=== PATIENT | female | born 1955 | race Caucasian/White ===

== ENCOUNTER → 2019-06-07 08:59 | Outpatient (BNVA) | payer MEDICARE, SELFPAY | PROVIDERS: Family Provider Family Medicine; PCP Family Medicine; Visit Provider Nurse Practitioner | DX: M50.00 Cervical disc disorder with myelopathy, unspecified cervical region (principal); G90.50 Complex regional pain syndrome I, unspecified; R51 Headache; F17.210 Nicotine dependence, cigarettes, uncomplicated; Z79.891 Long term (current) use of opiate analgesic | CPT/HCPCS: 99213; 99214 ==

== ENCOUNTER → 2019-08-10 11:45 | Outpatient (BNVA) | payer OTHER, SELFPAY | PROVIDERS: Family Provider Family Medicine; PCP Family Medicine; Visit Provider Nurse Practitioner | DX: Z76.89 Persons encountering health services in other specified circumstances (principal) | CPT/HCPCS: 99212 ==

== ENCOUNTER 2019-10-21 16:42 | Emergency (ER) | payer MEDICARE, SELFPAY ==
[2019-10-21 16:56] VITALS: BP 154/84; PULSE 83; RESP 18; TEMP 36.7; O2SAT 96; BMI 24.7
--- NOTE | 2019-10-21 17:24 | ED_ITS ---
HPI - Fall General: Chief Complaint: Fall Stated Complaint: FALL/HEAD LAC Time Seen by Provider: 10/21/19 17:09 History of Present Illness: HPI Narrative: Patient is a 64-year-old female comes to the ED with a head laceration after falling and hitting her head. Patient says she was carrying something and lost her balance and fell hitting left side of head against a wooden pole. She denies any loss of consciousness, vision changes or any new neurological deficits. She denies any headache, pain or discomfort. Patient does have a laceration on her scalp and she came to the ED to get evaluation of scalp laceration. Patient does currently take 81 mg of aspirin daily. Patient's last tetanus was within 5 years. Associated symptoms-after fall: Denies abdominal pain, chest pain, headache(s), hematuria or neck pain Review of Systems Const: Denies: fever(s), chills or fatigue Eyes: Denies: change in vision or eye discomfort ENMT: Denies: throat pain, odynophagia, nasal discharge or nasal congestion Card: Denies: chest pain, palpitations, edema, swelling of feet/ankles, dyspnea on exertion or orthopnea Resp: Denies: dyspnea, productive cough or non-productive cough GI: Denies: abdominal pain, nausea, vomiting, diarrhea, constipation or hematochezia : Denies: flank pain, dysuria or hematuria Musc: Denies: neck pain, back pain or extremity swelling Skin/Breast: Reports: new lesions (Scalp laceration.); Denies: rash Neuro: Denies: headache(s), numbness in extremities or weakness in extremities PFS ED PFSH: Medical History Cervical disc disease with myelopathy CRPS (complex regional pain syndrome type I) Headache Long-term use of high-risk medication Tobacco abuse Surgical History Hx of open fracture RIGHT ARM S/P hysterectomy 1984 Family History Mother CAD (coronary artery disease) Brother Cancer COLON CANCER Sister Diabetes 2 SISTERS Denies family history of Anesthesia complication Bleeding disorder Social History Smoking and tobacco status: current every day smoker cigarettes [ Other cigarette details: 3 cig day ] Alcohol intake: never Physical Exam Const: COMMON NORMALS: no acute distress, patient oriented x3 and alert GENERAL APPEARANCE: cooperative and comfortable HENMT: COMMON NORMALS: normocephalic HEAD & SCALP: normocephalic and laceration left parietal Details of head laceration: linear, superficial and sensation intact; not actively bleeding, not pulsatile bleeding and not contaminated Head laceration size: 2.5 cm; no Veloz's sign, no palpable skull fracture, no raccoon eyes and no scalp tenderness MOUTH: Normal oral and palatal mucosa present THROAT: posterior oropharynx normal and uvula midline Eye: COMMON NORMALS: Equal, round and reactive pupils present, EOMs intact bilaterally and normal visual corey by confrontation PUPIL: Yes Equal, round and reactive pupils present Neck/C-Spine: COMMON NORMALS: supple GENERAL: Yes normal visual inspection Resp: COMMON NORMALS: normal respiratory effort, No retractions, No use of accessory muscles and clear to auscultation bilaterally AUSCULTATION: clear to auscultation bilaterally Cardio: COMMON NORMALS: regular rate, regular rhythm, S1 normal heart sound present, S2 normal heart sound present, No gallops present (Cardio), No clicks present (Cardio), No murmurs present (Cardio) and Peripheral pulses 2+ throughout RATE: regular rate RHYTHM: regular rhythm HEART SOUNDS: S1 normal heart sound present and S2 normal heart sound present PERIPHERAL PULSES: Peripheral pulses 2+ throughout GI: COMMON NORMALS: Normal to inspection, nondistended, normoactive bowel sounds present, Soft to palpation, non-tender and no masses PALPATION: Yes Soft to palpation : COMMON NORMALS: Yes no CVA tenderness BLADDER/KIDNEY EXAM: Yes no CVA tenderness Back/Pelvis: COMMON NORMALS: no CVA tenderness Extremity: COMMON NORMALS: normal to inspection and no pedal edema Neuro: COMMON NORMALS: patient oriented x3, CN's II-XII intact bilaterally, moves all extremities, no focal motor deficits and no sensory deficits noted SENSORIUM/ORIENTATION: Yes alert COORDINATION/BALANCE: whbebj-ie-mond test normal and [id number]-[id number] test normal SENSORY EXAM: Yes extremities (intact) MOTOR EXAM: 5/5 motor strength present throughout (Right upper extremity weakness that is chronic and not acute) COORDINATION: pxscfu-qd-iwrk test normal and wjwq-ne-tfbp test normal OTHER: Patient has chronic right upper extremity weakness due to injury in the past. Current right upper extremity weakness is baseline and a chronic issue. No acute change in status. Skin: GENERAL SKIN EXAM: dry skin TRAUMA: laceration (Laceration described in [facility] section of physical exam.) Procedures Laceration Laceration 1: Site: scalp Side (If applicable): left Size (cm): 2.5 Description: linear and clean Depth: simple, single layer Local Anesthetic: lidocaine 1% and with epi Amount of anesthesia used (mL): 10 Pre-repair: irrigated extensively (with normal saline) Skin layer closed with: other (rehana) Number of sutures: 3 (reahna) Technique: other (rehana) Course Vital Signs: Vital signs: Vital Signs Temperature 98.0 F 10/21/19 16:56 Pulse Rate 74 10/21/19 19:28 Respiratory Rate 16 10/21/19 19:28 Blood Pressure 184/90 10/21/19 19:28 Pulse Oximetry 98 10/21/19 19:28 MDM - Fall MDM Narrative: Medical decision making narrative: Patient is a 64-year-old female comes to the ED with fall and head laceration. Denied any loss of consciousness, nausea/vomiting or neurological symptoms. Physical exam showed 2-1/2 cm superficial linear laceration. No scalp or skull tenderness. CT of the head showed no acute findings. Laceration site was irrigated extensively with normal saline. Local lidocaine with epi was used and 3 rehana were placed to close laceration. Patient was discharged and told to have rehana removed in about 10 days. Patient understood and agreed with plan. Imaging Data^: CT Head: Attestation: I personally reviewed and interpreted this imaging study as follows: Radiologist's impression: [address] [address] [address] Scan Report Signed Patient: Lani Kaufman Unit #: [id number] : 1955 Age/Sex: 64 / F ADM Date: 10/21/19 Loc: ER Room/Bed: Attending Dr: Ordering Provider/Ordering MD: Devon Joy Date of Service: 10/21/19 Procedure(s): CT head wo con* [id number] Accession Number(s): [id number] Report Number: [id number] PROCEDURE INFORMATION: Exam: CT Head Without Contrast Exam date and time: 10/21/2019 6:20 PM Age: 64 years old Clinical indication: Injury or trauma; Fall; Initial encounter; Blunt trauma (contusions or hematomas); Without loss of consciousness; Additional info: Fall and hit head, scalp laceration TECHNIQUE: Imaging protocol: Computed tomography of the head without contrast. Radiation optimization: All CT scans at this facility use at least one of these dose optimization techniques: automated exposure control; mA and/or kV adjustment per patient size (includes targeted exams where dose is matched to clinical indication); or iterative reconstruction. COMPARISON: [place] [id number] 10/28/2017 10:04 AM RADIATION DOSE METRICS: Total DLP: 707.05 mGy-cm FINDINGS: Brain: Mild-moderate scattered hypodensities in supratentorial periventricular and subcortical white matter. No intracranial hemorrhage. Ventricles: Normal. No ventriculomegaly. Bones/joints: Unremarkable. No acute fracture. Sinuses: Mucosal thickening in the ethmoid and maxillary sinuses. Mastoid air cells: Visualized mastoid air cells are well aerated. Soft tissues: Left parietal scalp laceration with skin rehana. CT/CT head wo con* [id number] IMPRESSION: 1. No acute intracranial abnormality. 2. Mild-moderate microangiopathy. 3. Left scalp laceration with skin rehana. Radiation Dose CTDIVOL = (mGy): DLP = 707.05 (mGy-cm) Dictated By: London Smith Signed By: London Smith Signed Date/Time: 10/21/191840 DD/ 38 Discharge Plan Discharge Patient Disposition: Home, Self-Care Clinical Impression: Laceration of scalp Qualifiers: Encounter type: initial encounter Qualified Code(s): S01.01XA - Laceration without foreign body of scalp, initial encounter Condition: Stable Prescriptions: No Action albuterol sulfate [ProAir HFA] 90 mcg/actuation HFA aerosol inhaler 2 puff INHALATION Q6H PRNRF: 0 venlafaxine [Effexor XR] 150 mg capsule,extended release 24hr 150 mg PO QAM Qty: 30 RF: 5 hydrocodone-acetaminophen 5-325 mg tablet 1 tab PO BID PRN (Reason: pain) 30 Days Qty: 60 RF: 0 Hold Instructions: Home Medication placed on hold at Doctor's office methadone 10 mg tablet 10 mg PO Q8H 30 Days Qty: 90 RF: 0 Hold Instructions: Home Medication placed on hold at Doctor's office aspirin 81 mg tablet,delayed release (DR/EC) 81 mg PO QDAY RF: 0 sennosides [senna] 8.6 mg tablet 17.2 mg PO . NEEDED RF: 0 hydrocodone-acetaminophen 5-325 mg tablet 1 tab PO BID PRN (Reason: pain) 30 Days Qty: 60 RF: 0 omeprazole 40 mg capsule,delayed release(DR/EC) 40 mg PO BID Qty: 30 RF: 1 methadone 10 mg tablet 10 mg PO TID 30 Days Qty: 90 RF: 0 methadone 10 mg tablet 10 mg PO Q8H 30 Days Qty: 90 RF: 0 Discharge Orders: Discharge Order (Routine); Ordered 10/21/19 Ordered By: Devon Joy Referrals: Leif Sotelo MD [Primary Care Provider] - Discharge Diet: Regular Discharge Activity: Resume usual activity Patient Instructions: Scalp Laceration Activity Restrictions/Additional Instructions: Keep head clean and dry for the next 24 hours. After that you can rinse hair but do not vigorously scrub scalp. Have rehana removed in about 10 days. Follow-up with your PCP and 7 to 10 days for reevaluation. Take Tylenol for any pain. He can apply an ice pack on head to help with swelling. Discharge Date/Time: 10/21/19 19:32 Coding Level of Care Code ED Auto Service [employer] for [employer] Fwd Exam Comprehensive
[2019-10-21 17:30] VITALS: BP 172/94; PULSE 77; RESP 18; O2SAT 98
--- NOTE | 2019-10-21 17:37 | CTR_ITS ---
PROCEDURE INFORMATION: Exam: CT Head Without Contrast Exam date and time: 10/21/2019 6:20 PM Age: 64 years old Clinical indication: Injury or trauma; Fall; Initial encounter; Blunt trauma (contusions or hematomas); Without loss of consciousness; Additional info: Fall and hit head, scalp laceration TECHNIQUE: Imaging protocol: Computed tomography of the head without contrast. Radiation optimization: All CT scans at this facility use at least one of these dose optimization techniques: automated exposure control; mA and/or kV adjustment per patient size (includes targeted exams where dose is matched to clinical indication); or iterative reconstruction. COMPARISON: [place] [id number] 10/28/2017 10:04 AM RADIATION DOSE METRICS: Total DLP: 707.05 mGy-cm FINDINGS: Brain: Mild-moderate scattered hypodensities in supratentorial periventricular and subcortical white matter. No intracranial hemorrhage. Ventricles: Normal. No ventriculomegaly. Bones/joints: Unremarkable. No acute fracture. Sinuses: Mucosal thickening in the ethmoid and maxillary sinuses. Mastoid air cells: Visualized mastoid air cells are well aerated. Soft tissues: Left parietal scalp laceration with skin rehana. CT/CT head wo con* [id number] IMPRESSION: 1. No acute intracranial abnormality. 2. Mild-moderate microangiopathy. 3. Left scalp laceration with skin rehana. Radiation Dose CTDIVOL = (mGy): DLP = 707.05 (mGy-cm)
--- NOTE | 2019-10-21 17:37 | PC.NURSE ---
the wound was cleaned with soap and water to reveal an appr 2cm laceration to the left pariatal area of the head
[2019-10-21 18:18] VITALS: BP 106/44; PULSE 88; RESP 17; O2SAT 99
[2019-10-21 18:33] VITALS: BP 180/91; PULSE 77; RESP 18; O2SAT 100
[2019-10-21 19:28] VITALS: BP 184/90; PULSE 74; RESP 16; O2SAT 98
== END 2019-10-21 19:32 | disposition home or self-care (01) ==
PROVIDERS: Emergency Provider Physician Assistant; Family Provider Family Medicine; PCP Family Medicine
DX: S01.01XA Laceration without foreign body of scalp, initial encounter (principal); Z79.82 Long term (current) use of aspirin; W19.XXXA Unspecified fall, initial encounter; F17.210 Nicotine dependence, cigarettes, uncomplicated
CPT/HCPCS: 12001; 12345; 70450; 99282; 99283; J2001

== ENCOUNTER → 2019-11-04 09:58 | Outpatient (BNVA) | payer OTHER, SELFPAY | PROVIDERS: Family Provider Family Medicine; PCP Family Medicine; Visit Provider Nurse Practitioner | DX: M50.00 Cervical disc disorder with myelopathy, unspecified cervical region (principal); G90.50 Complex regional pain syndrome I, unspecified; F17.210 Nicotine dependence, cigarettes, uncomplicated; Z79.891 Long term (current) use of opiate analgesic | CPT/HCPCS: 99213 ==

== ENCOUNTER → 2020-01-24 10:44 | Outpatient (BNVA) | payer OTHER, SELFPAY | PROVIDERS: Family Provider Family Medicine; PCP Family Medicine; Visit Provider Nurse Practitioner | DX: M50.00 Cervical disc disorder with myelopathy, unspecified cervical region (principal); G90.50 Complex regional pain syndrome I, unspecified; F17.210 Nicotine dependence, cigarettes, uncomplicated; Z79.891 Long term (current) use of opiate analgesic; Z71.6 Tobacco abuse counseling | CPT/HCPCS: 99213; 99214 ==

== ENCOUNTER → 2020-03-22 14:01 | Outpatient (BNVA) | payer OTHER, SELFPAY | PROVIDERS: Family Provider Family Medicine; PCP Family Medicine; Visit Provider Anesthesiology | DX: G90.50 Complex regional pain syndrome I, unspecified (principal); M50.00 Cervical disc disorder with myelopathy, unspecified cervical region; F17.210 Nicotine dependence, cigarettes, uncomplicated; Z79.891 Long term (current) use of opiate analgesic | CPT/HCPCS: 99212; 99214 ==

== ENCOUNTER → 2020-05-17 12:58 | Outpatient (BNVA) | payer OTHER, SELFPAY | PROVIDERS: Family Provider Family Medicine; PCP Family Medicine; Visit Provider Nurse Practitioner | DX: G90.50 Complex regional pain syndrome I, unspecified (principal); M50.00 Cervical disc disorder with myelopathy, unspecified cervical region; M25.511 Pain in right shoulder; Z72.0 Tobacco use; Z79.891 Long term (current) use of opiate analgesic; Z71.6 Tobacco abuse counseling | CPT/HCPCS: 99214; G0463 ==

== ENCOUNTER 2020-08-02 13:34 | Outpatient (CLI) | payer MEDICARE, SELFPAY ==
--- NOTE | 2020-08-02 13:43 | MM_ITS ---
WS: [id number] BILATERAL DIGITAL SCREENING MAMMOGRAPHY WITH CAD CLINICAL INFORMATION: SCREENING HISTORY: Screening mammogram. No current complaints. COMPARISON: TECHNIQUE: Bilateral CC and MLO views. FINDINGS: Scattered fibroglandular densities bilaterally. No suspicious focal mass, asymmetry, calcifications, or architectural distortion. No evidence of malignancy. A few incidental punctate calcifications. MM/[place] [id number] IMPRESSION: BI-RADS: 1-Negative FOLLOW UP: 1 Year Follow-up Recommend return to annual screening mammography.
== END 2020-08-02 13:35 | disposition home or self-care (01) ==
PROVIDERS: PCP Family Medicine; Visit Provider Nurse Practitioner Family
DX: Z12.31 Encounter for screening mammogram for malignant neoplasm of breast (principal)
CPT/HCPCS: 77067

== ENCOUNTER → 2020-08-13 15:59 | Outpatient (BNVA) | payer MEDICARE, SELFPAY | PROVIDERS: PCP Family Medicine; Referring Provider Nurse Practitioner Family; Visit Provider Specialist | DX: M25.569 Pain in unspecified knee (principal) | CPT/HCPCS: 73560; 73565; 80500; 87070; 87205; 89051 ==

== ENCOUNTER → 2020-08-15 09:01 | Outpatient (BNVA) | payer OTHER, SELFPAY | PROVIDERS: PCP Family Medicine; Visit Provider Nurse Practitioner | DX: G90.50 Complex regional pain syndrome I, unspecified (principal); M50.00 Cervical disc disorder with myelopathy, unspecified cervical region; K29.70 Gastritis, unspecified, without bleeding; F17.210 Nicotine dependence, cigarettes, uncomplicated; Z79.891 Long term (current) use of opiate analgesic; Z71.6 Tobacco abuse counseling | CPT/HCPCS: 99213 ==

== ENCOUNTER → 2020-08-25 12:32 | Outpatient (BNVA) | payer MEDICARE, SELFPAY | PROVIDERS: PCP Family Medicine; Visit Provider Nurse Practitioner | DX: Z20.822 Contact with and (suspected) exposure to COVID-19 (principal) | CPT/HCPCS: 87635 ==

== ENCOUNTER 2020-08-28 07:14 | Day surgery (SDC) | payer MEDICARE, SELFPAY ==
[2020-08-24 12:45] VITALS: BMI 23.3
[2020-08-28 07:32] VITALS: BP 98/80; PULSE 81; RESP 18; TEMP 36.8; O2SAT 97
--- NOTE | 2020-08-28 07:53 | ANES.PREANE2 ---
Pre-Anesthetic Assessment Pre-Anesthetic Assessment: Height/Weight: Height 1.6 m Weight 59.874 kg Temp Pulse Resp BP Pulse Ox 98.2 F 81 18 98/80 97 08/28/20 07:32 08/28/20 07:32 08/28/20 07:32 08/28/20 07:32 08/28/20 07:32 Preop Diagnosis: screening colonoscopy Proposed Procedure: Operation Date: 08/28/20 08:30 Proposed Procedures p Colonoscopy 30689 Z12.11(Not Applicable) - Brett Jay MD Was Beta Kathrine taken within 24 hours: Yes Was Clonidine taken within 24 hours: N/A Last intake: Intake Last Liquid Date 08/27/20 Last Liquid Time 22:00 Last Solid Date 08/27/20 Last Solid Time 10:00 Social: Social History: Tobacco and No alcohol Packs per day: 0.5 Pack years: 42 years Exam: Pre-Anes Outpt Exam: alert, No oriented x 3, clear to auscultation bilaterally and regular rate & rhythm Airway: Submandibular: WNL Cervical ROM: Other (spinal cord stimulator previous trauma to right arm, limited ROM.) MP: 2 Dentition: Full History/ROS: No significant history except as noted Pulmonary: Pulmonary: COPD CV/HEM: CV/HEM: HTN : : None reported Hepatic: Hepatic: None reported GI: GI: GERD Metabolic: Metabolic: None reported Musc/skel: Comments: chronic pain, 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 spinal cord stimulator in place. Neuropsych: Neuropsych: Anxiety, Depression and TIA (10 years prior) Anesthetic Plan: ASA status: 3 Anesthesia: MAC Risk of > 500 ml blood loss (7ml/kg in children): No PFSH Anesthesia PFSH: Medical History Cervical disc disease with myelopathy COPD (chronic obstructive pulmonary disease) CRPS (complex regional pain syndrome type I) Headache Hypertension Hypoglycemia Surgical History History of colonoscopy 10+years ago History of esophagogastroduodenoscopy (EGD) Hx of open fracture RIGHT ARM S/P hysterectomy 1984 Family History Mother CAD (coronary artery disease) Brother Cancer COLON CANCER Sister Diabetes 2 SISTERS Denies family history of Anesthesia complication Bleeding disorder Social History Smoking and tobacco status: current every day smoker cigarettes [ Other cigarette details: 3 cig day ] Alcohol intake: never History of recent travel: No Data Anesthesia Cardiac Studies: No Data to Display
[2020-08-28] MEDS: sodium chloride 0.9% 1,000 ML 30 ML IV (07:58)
--- NOTE | 2020-08-28 08:35 | W.PM.OPSUD ---
Surgery/Procedure H&P Update DATE OF PROCEDURE: August 28, 2020 DATE H&P PERFORMED: 08/07/20 H&P UPDATE INFORMATION: I have reviewed H&P completed within last 30 days, I have examined patient prior to procedure and No changes to prior documentation PREOP DIAGNOSIS: screening colonoscopy PLANNED PROCEDURE: Operation Date: 08/28/20 08:30 Proposed Procedures p Colonoscopy 69706 Z12.11(Not Applicable) - Brett Jay MD
[2020-08-28 09:04] VITALS: BP 112/62; PULSE 67; RESP 16; TEMP 36.6; O2SAT 95
--- NOTE | 2020-08-28 11:38 | ANE.PACU2 ---
Inpatient post-anesthesia follow up: Airway intact: Yes Vital signs: Temperature 97.8 F Pulse Rate 67 Respiratory Rate 16 Blood Pressure 112/62 Pulse Oximetry 95 Oxygen Delivery Me thod Room Air Oxygen Flow Rate Fraction of Inspir ed Oxygen Hydration adequate: Yes Nausea and vomiting: No Mental status: Baseline
--- NOTE | 2020-08-28 13:45 | ANE.PACU2 ---
Inpatient post-anesthesia follow up: Airway intact: Yes Vital signs: Temperature 97.8 F Pulse Rate 67 Respiratory Rate 16 Blood Pressure 112/62 Pulse Oximetry 95 Oxygen Delivery Me thod Room Air Oxygen Flow Rate Fraction of Inspir ed Oxygen Hydration adequate: Yes Nausea and vomiting: No Pain level: 1 Mental status: Baseline
== END 2020-08-28 09:50 | disposition home or self-care (01) ==
PROVIDERS: PCP Family Medicine; Visit Provider Surgery
PROC: 0DJD8ZZ Inspection of Lower Intestinal Tract, Via Natural or Artificial Opening Endoscopic (ICD-10-PCS; CPT 45378; principal; 2020-08-28 08:30)
DX: Z12.11 Encounter for screening for malignant neoplasm of colon (principal); D12.0 Benign neoplasm of cecum; Z80.0 Family history of malignant neoplasm of digestive organs; Z79.82 Long term (current) use of aspirin; J44.9 Chronic obstructive pulmonary disease, unspecified; I10 Essential (primary) hypertension; F17.210 Nicotine dependence, cigarettes, uncomplicated; Z82.49 Family history of ischemic heart disease and other diseases of the circulatory system
CPT/HCPCS: 45380; 88305; 96360; J2704; J7030

== ENCOUNTER 2020-08-31 08:13 | Day surgery (SDC) | payer MEDICARE, SELFPAY ==
[2020-08-30 17:06] VITALS: BMI 24.1
[2020-08-31] VITALS (8 sets, daily range): BP systolic 132–162; BP diastolic 86–101; PULSE 77–110; RESP 16–20; TEMP 36.1–36.8; O2SAT 97–100
--- NOTE | 2020-08-31 08:48 | ANES.PREANE2 ---
Pre-Anesthetic Assessment Pre-Anesthetic Assessment: Height/Weight: Height 1.57 m Weight 59.874 kg Temp Pulse Resp BP Pulse Ox 98.3 F 77 18 150/101 97 08/31/20 08:35 08/31/20 08:35 08/31/20 08:35 08/31/20 08:35 08/31/20 08:35 Preop Diagnosis: Right prepatellar bursitis Proposed Procedure: Operation Date: 08/31/20 09:50 Proposed Procedures p Excision pre patellar bursa of right knee 27961 M71.30(Right) - Greta Carson MD Was Beta Kathrine taken within 24 hours: Yes Was Clonidine taken within 24 hours: N/A Last intake: Intake Last Liquid Date 08/30/20 Last Liquid Time 19:00 Last Solid Date 08/30/20 Last Solid Time 18:00 Social: Social History: Tobacco and No alcohol Exam: Pre-Anes Outpt Exam: alert, oriented x 3, clear to auscultation bilaterally and regular rate & rhythm Airway: Submandibular: WNL Cervical ROM: WNL MP: 2 Additional comments: Missing some Pulmonary: Pulmonary: COPD CV/HEM: CV/HEM: HTN [facility] [place], [place]/[facility]: Comments: Chronic pain/opioid Anesthetic Plan: ASA status: 3 Anesthesia: General Risk of > 500 ml blood loss (7ml/kg in children): No PFSH Anesthesia PFSH: Medical History Cervical disc disease with myelopathy COPD (chronic obstructive pulmonary disease) CRPS (complex regional pain syndrome type I) Headache Hypertension Hypoglycemia Surgical History (Updated 08/28/20 @ 09:35 by Brett Jay MD) History of colonoscopy (08/28/20) cecal polyp, poor prep History of esophagogastroduodenoscopy (EGD) Hx of open fracture RIGHT ARM S/P hysterectomy 1984 Family History Mother CAD (coronary artery disease) Brother Cancer COLON CANCER Sister Diabetes 2 SISTERS Denies family history of Anesthesia complication Bleeding disorder Social History Smoking and tobacco status: current every day smoker cigarettes [ Other cigarette details: 3 cig day ] Alcohol intake: never History of recent travel: No Data Anesthesia Cardiac Studies: No Data to Display
[2020-08-31] MEDS: acetaminophen 1,000 MG/100 ML PIGGYBACK 400 MG IV (09:00)
--- NOTE | 2020-08-31 09:08 | W.PM.OPSUD ---
Surgery/Procedure H&P Update DATE OF PROCEDURE: August 31, 2020 DATE H&P PERFORMED: 08/16/20 H&P UPDATE INFORMATION: I have reviewed H&P completed within last 30 days, I have examined patient prior to procedure, No changes to prior documentation and H&P is in [facility] EMR on date indicated PREOP DIAGNOSIS: Right prepatellar bursitis PLANNED PROCEDURE: Operation Date: 08/31/20 09:50 Proposed Procedures p Excision pre patellar bursa of right knee 78087 M71.30(Right) - Greta Carson MD Related Problem List Diagnoses (1) Effusion of right prepatellar bursa:
[2020-08-31] MEDS: sodium chloride 0.9% 1,000 ML 30 ML IV (09:10)
[2020-08-31] MEDS: CELEcoxib 200 mg Capsule 400 MG PO (09:16)
[2020-08-31] MEDS: ceFAZolin 1,000 mg SDV 1000 MG (10:04)
[2020-08-31] MEDS: fentaNYL 50 mcg/mL INJ 2mL IVP (10:37)
--- NOTE | 2020-08-31 11:23 | PM.OP ---
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 This was aspirated in the office for clear fluid. The mass was relatively discrete on evaluation, but she also had some pain and inflammation in the area. Procedure: The patient was brought to the operating theater, and after undergoing adequate general anesthesia, per LMA, the right lower extremity was prepped and draped in usual fashion following placement of a tourniquet high on the leg. The leg was then draped free with the prepping accomplished with DuraPrep. Following prepping and draping, the leg was exsanguinated, and the tourniquet was elevated to 250 mmHg for total tourniquet time of 9 minutes. Prior to elevation of the tourniquet, but following exposure of the site of surgery, a surgical pause was performed. At the time of the surgical pause we confirmed the site and side of surgery. Additionally, we confirmed the appropriate and timely administration of preoperative antibiotics, Ancef 2 g. The availability of equipment was confirmed, and the patient's identity was verbalized as well. Following the surgical pause, an incision was made centering over the patella continuing proximally and distally as necessary to allow access to the prepatellar bursa. Dissection continued through skin and soft tissues using a scalpel. Hemostasis was obtained using electrocautery. Care was taken to remove the cyst, and this was sent to pathology. This cyst was noted to be somewhat hemorrhagic inside and was a discrete cyst. There was clear fluid but no evidence of infection. Following removal of the cyst and associated bursal tissues, hemostasis was obtained using electrocautery. This area was irrigated, Surgi-Jack was placed, and closure was accomplished with interrupted 2-0 Monocryl in the subcutaneous tissues. 3-0 Monocryl was used to close the subcuticular area in a running fashion. This closure was followed by Dermabond and Steri-Strips. A Telfa, Tegaderm, ABDs, sterile soft roll, and an Clay wrap were then placed. The patient was returned the Recovery Room in a satisfactory condition. Will be discharged home, and the cyst was sent to pathology. Associated Problem List Diagnoses (1) Effusion of right prepatellar bursa: (2) Cyst, bursa:
--- NOTE | 2020-08-31 13:17 | ANE.PACU2 ---
Inpatient post-anesthesia follow up: Airway intact: Yes Vital signs: Temperature 97 F Pulse Rate 87 Respiratory Rate 18 Blood Pressure 162/89 Pulse Oximetry 99 Oxygen Delivery Me thod Room Air Oxygen Flow Rate 6 Fraction of Inspir ed Oxygen Hydration adequate: Yes Nausea and vomiting: No Pain level: 1 Mental status: Baseline
== END 2020-08-31 12:34 | disposition home or self-care (01) ==
PROVIDERS: PCP Family Medicine; Visit Provider Specialist
PROC: (CPT 27340; principal; 2020-08-31 09:40)
DX: M70.41 Prepatellar bursitis, right knee (principal); J44.9 Chronic obstructive pulmonary disease, unspecified; I10 Essential (primary) hypertension; Z79.891 Long term (current) use of opiate analgesic; Z82.49 Family history of ischemic heart disease and other diseases of the circulatory system; Z83.3 Family history of diabetes mellitus; Z80.0 Family history of malignant neoplasm of digestive organs; F17.210 Nicotine dependence, cigarettes, uncomplicated; Z79.82 Long term (current) use of aspirin
CPT/HCPCS: 27340; 88304; 96365; J0690; J1170; J2704; J3010; J3490; J7030

== ENCOUNTER → 2020-10-16 09:25 | Outpatient (BNVA) | payer OTHER, SELFPAY | PROVIDERS: PCP Family Medicine; Visit Provider Nurse Practitioner | DX: G90.50 Complex regional pain syndrome I, unspecified (principal); M50.00 Cervical disc disorder with myelopathy, unspecified cervical region; F17.210 Nicotine dependence, cigarettes, uncomplicated; Z79.891 Long term (current) use of opiate analgesic; Z79.899 Other long term (current) drug therapy | CPT/HCPCS: 99214 ==

== ENCOUNTER → 2020-11-28 08:18 | Outpatient (BNVA) | payer OTHER, SELFPAY | PROVIDERS: PCP Family Medicine; Visit Provider Nurse Practitioner | DX: M50.00 Cervical disc disorder with myelopathy, unspecified cervical region (principal); G90.50 Complex regional pain syndrome I, unspecified; F17.210 Nicotine dependence, cigarettes, uncomplicated; Z79.891 Long term (current) use of opiate analgesic; Z71.6 Tobacco abuse counseling | CPT/HCPCS: 99214; 99406 ==

== ENCOUNTER → 2021-01-23 09:20 | Outpatient (BNVA) | payer OTHER, SELFPAY | PROVIDERS: PCP Family Medicine; Visit Provider Nurse Practitioner | DX: M50.00 Cervical disc disorder with myelopathy, unspecified cervical region (principal); G90.50 Complex regional pain syndrome I, unspecified; Z71.6 Tobacco abuse counseling; F17.210 Nicotine dependence, cigarettes, uncomplicated; Z79.891 Long term (current) use of opiate analgesic | CPT/HCPCS: 99213 ==

== ENCOUNTER 2022-05-04 12:45 | Emergency (ER) | payer MEDICARE, SELFPAY ==
[2022-05-04] VITALS (95 sets, daily range): BP systolic 112–183; BP diastolic 57–122; PULSE 66–84; RESP 13–27; TEMP 36.9; O2SAT 92–98
--- NOTE | 2022-05-04 12:45 | CTR_ITS ---
PROCEDURE INFORMATION: Exam: CT Head Without Contrast Exam date and time: 05/04/2022 12:43 PM Age: 66 years old Clinical indication: Stroke-like symptoms; Altered mental status/memory loss; Additional info: Symptoms of acute stroke TECHNIQUE: Imaging protocol: Computed tomography of the head without contrast. Radiation optimization: All CT scans at this facility use at least one of these dose optimization techniques: automated exposure control; mA and/or kV adjustment per patient size (includes targeted exams where dose is matched to clinical indication); or iterative reconstruction. Other technique: STROKE PROTOCOL was implemented. COMPARISON: CT head wo con* [id number] 10/21/2019 6:13 PM RADIATION DOSE METRICS: Total DLP (mGy-cm): 1141.65 FINDINGS: Brain: Chronic right caudate head, bilateral putamen, right anterior limb internal capsule, right thalamic lacunar infarctions. Moderate hypoattenuating foci are noted in the central cerebral, posterior superior periatrial and anterior lateral ventricular periventricular white matter bilaterally. No intracranial hemorrhage. No mass or acute cortical infarction identified. Ventricles: Prominence of the ventricular system and subarachnoid spaces is consistent with the patient's age of 66 years. Paranasal sinuses: Visualized sinuses are unremarkable. No fluid levels. Mastoid air cells: Inferior right mastoid 2.1 cm external table benign osteoma (series 9, image 16). No fracture. Orbital cavities: Bilateral prior cataract surgery with lens replacements. Bones/joints: See Mastoid air cells finding. Soft tissues: Unremarkable. Vasculature: Atherosclerotic calcifications are present involving the carotid artery siphons bilaterally. CT/CT head thrombolytic [id number] IMPRESSION: 1. Chronic right caudate head, bilateral putamen, right anterior limb internal capsule, right thalamic lacunar infarctions. 2. Age appropriate supratentorial and infratentorial atrophy. 3. Moderate chronic white matter microvascular ischemic disease. 4. No acute intracranial abnormality identified. ASSESSMENT: ASPECTS ([place] Stroke Program Early CT Score) is 10.
--- NOTE | 2022-05-04 12:55 | W.ED.NEUROSD ---
HPI - Neuro Symptoms/Deficit General: Chief Complaint: Neuro Symptoms/Deficit Stated Complaint: STROKE LIKE SYMPTOMS Time Seen by Provider: 05/04/22 12:45 Source: patient Mode of arrival: ambulatory Limitations: no limitations History of Present Illness: 66-year-old female who family states this morning at 10 had a period of altered mental status along with left-sided facial droop she states that her symptoms completely resolved and she went to nondenominational and had an episode episode at noon with droop along with slurred speech patient denies any headache denies any chest pain last known normal was at noon she is not on any blood thinners. [facility] ED PFS: Medical History (Updated 05/04/22 @ 13:49 by Romero Webb MD) Cervical disc disease with myelopathy COPD (chronic obstructive pulmonary disease) CRPS (complex regional pain syndrome type I) Dysplastic nevus Excision with margins free on 02/04/[address] Beckham [facility]. Headache History of stroke Hypertension Hypoglycemia Vulvar lesion Surgical History History of colonoscopy (08/28/20) cecal polyp, poor prep History of esophagogastroduodenoscopy (EGD) Hx of open fracture RIGHT ARM Hx of right knee surgery Removal right prepatellar cystic bursitis DOS: 08/31/[address] Carson S/P hysterectomy 1985 Family History Mother CAD (coronary artery disease) Hypertension Brother Cancer COLON CANCER Sister Diabetes 2 SISTERS Stroke Denies family history of Clotting disorder Hyperlipidemia Chronic kidney disease (CKD) Anesthesia complication Bleeding disorder Thyroid disease Social History Smoking and tobacco status: current every day smoker cigarettes Years cigarettes smoked: 40 Alcohol intake: never History of recent travel: No NIH stroke score NIHSS: Level Of Consciousness - 1a: 0 Level Of Consciousness Questions - 1b: Both Correct Level Of Consciousness Commands - 1c: Both Correct Best Gaze - 2: Normal Visual Leiva - 3: No Visual Loss Facial Palsy - 4: Partial Paralysis Motor Arm Right - 5: No Drift Motor Arm Left - 5: No Drift Motor Leg Right - 6: No Drift Motor Leg Left - 6: No Drift Limb Ataxia - 7: Absent Sensory - 8: Normal Best Language - 9: No Aphasia Dysarthia - 10: Mild/Moderate Dysarthia Extinction And Inattention - 11: 0 Score: Total Score: 3 Physical Exam Const: COMMON NORMALS: patient oriented x3 GENERAL APPEARANCE: ill appearing HENMT: COMMON NORMALS: normocephalic and atraumatic HEAD & SCALP: normocephalic and atraumatic Eye: COMMON NORMALS: Equal, round and reactive pupils present and EOMs intact bilaterally PUPIL: Yes Equal, round and reactive pupils present Neck/C-Spine: COMMON NORMALS: full ROM and supple Chest: COMMONS NORMALS: normal inspection of the chest and normal palpation of entire chest wall Resp: COMMON NORMALS: normal respiratory effort, No retractions, No use of accessory muscles and clear to auscultation bilaterally AUSCULTATION: clear to auscultation bilaterally Cardio: COMMON NORMALS: regular rate, regular rhythm and No murmurs present (Cardio) RATE: regular rate RHYTHM: regular rhythm GI: COMMON NORMALS: Normal to inspection, nondistended, normoactive bowel sounds present, Soft to palpation, non-tender and no masses PALPATION: Yes Soft to palpation Extremity: COMMON NORMALS: normal to inspection and full ROM Neuro: COMMON NORMALS: patient oriented x3 and moves all extremities OTHER: Left-sided facial droop along with some slight slurred speech Psych: COMMON NORMALS: mental status grossly normal, Normal thought process present and cooperative THOUGHT PROCESS: Normal thought process present Skin: COMMON NORMALS: no rashes or lesions noted and no wounds GENERAL SKIN EXAM: no rashes or lesions noted Course Vital Signs: Vital signs: Vital Signs Pulse Rate 72 05/04/22 14:35 Respiratory Rate 20 H 05/04/22 14:35 Blood Pressure 117/64 05/04/22 14:35 Pulse Oximetry 95 05/04/22 14:35 Oxygen Delivery Me thod 05/04/22 13:26 MDM - Neuro Symptoms/Deficit Medical Decision Making Patient presents here with concerns for CVA her symptoms have kind of waxed and waned when she first got here her NIH was 3 her symptoms had improved slightly her facial droop is improved and her speech is improved but then she had worsened I had patient evaluated by telestroke due to these waxing waning symptoms there was a delay in being able to get a hold of Addison Bahai we called about 1 and did not get a call back to 125 patient was evaluated by the neurologist who agreed patient is a tPA candidate we will push tPA at this time her blood pressure was hypertensive originally gave her labetalol she is now in acceptable limits will transfer to [facility] Patient's symptoms have improved here after tPA will transfer to [facility] for neurology along with ICU availability Lab Data 05/04/22 12:50 05/04/22 12:[address] 05/04/22 12:45 IMPRESSION: 1. Chronic right caudate head, bilateral putamen, right anterior limb internal capsule, right thalamic lacunar infarctions. 2. Age appropriate supratentorial and infratentorial atrophy. 3. Moderate chronic white matter microvascular ischemic disease. 4. No acute intracranial abnormality identified. ASSESSMENT: ASPECTS ([place] Stroke Program Early CT Score) is 10. ADDENDUM: 05/04/22 1301 THIS REPORT CONTAINS FINDINGS THAT MAY BE CRITICAL TO PATIENT CARE. The findings were verbally communicated by me to DR. ROMERO WEBB via telephone conference at 1:00 PM REACTOR FUELING SUPERVISOR on 05/04/2022. The findings were acknowledged and understood. Laboratory Results WBC 9.7 10^3/uL (4.0-10.0) 05/04/22 12:50 RBC 4.56 10^6/uL (4.1-5.3) 05/04/22 12:50 Hgb 13.9 g/dL (11.5-15.3) 05/04/22 12:50 Hct 42.6 % (37.0-47.0) 05/04/22 12:50 MCV 93.4 fl (81-99) 05/04/22 12:50 MCH 30.5 pg (28.0-34.0) 05/04/22 12:50 MCHC 32.6 g/dL (30.0-36.0) 05/04/22 12:50 RDW 14.1 % (12.1-15.1) 05/04/22 12:50 Plt Count 257 10^3/cmm (130-400) 05/04/22 12:50 MPV 11.1 fL (7.4-10.4) H 05/04/22 12:50 Neut % (Auto) 65.6 % 05/04/22 12:50 Lymph % (Auto) 23.4 % 05/04/22 12:50 [place] % (Auto) 6.5 % 05/04/22 12:50 Eos % (Auto) 3.7 % 05/04/22 12:50 Baso % (Auto) 0.5 % 05/04/22 12:50 Neut # (Auto) 6.36 10^3/uL (1.8-7.7) 05/04/22 12:50 Lymph # (Auto) 2.3 10^3/uL (0.8-4.8) 05/04/22 12:50 [place] # (Auto) 0.6 10^3/uL (0.2-0.9) 05/04/22 12:50 Eos # (Auto) 0.4 10^3/uL (0.0-0.8) 05/04/22 12:50 Baso # (Auto) 0.1 10^3/uL (0.0-0.1) 05/04/22 12:50 Nucleated RBC % (auto) 0 % 05/04/22 12:50 Nucleated RBCs # 0.0 /100WBC 05/04/22 12:50 PT 13.90 SECONDS (12.1-14.9) 05/04/22 12:50 INR 1.04 (0.8-1.2) 05/04/22 12:50 APTT 29.0 SECONDS (23.9-36.7) 05/04/22 12:50 Sodium 137 mmol/L (136-145) 05/04/22 12:50 Potassium 4.1 mmol/L (3.5-5.1) 05/04/22 12:50 Chloride 102 mmol/L (98-107) 05/04/22 12:50 Carbon Dioxide 24 mmol/L (22-29) 05/04/22 12:50 Anion Gap 15.1 (5-19) 05/04/22 12:50 BUN 24 mg/dL (8-23) H 05/04/22 12:50 Creatinine 1.0 mg/dL (0.5-0.9) H 05/04/22 12:50 GFR Calculation 55.6 mL/min (90-130) L 05/04/22 12:50 Glucose 78 mg/dL (65-115) 05/04/22 12:50 Calculated Osmolality 287 mOsm/kg (285-295) 05/04/22 12:50 Calcium 9.4 mg/dL (8.5-10.5) 05/04/22 12:50 Total Bilirubin 0.3 mg/dL (0.15-1.2) 05/04/22 12:50 AST 14 U/L (0-32) 05/04/22 12:50 ALT 12 U/L (0-33) 05/04/22 12:50 Alkaline Phosphatase 94 U/L (35-105) 05/04/22 12:50 Total Protein 7.5 g/dL (6.6-8.7) 05/04/22 12:50 Albumin 4.3 g/dL (3.5-5.2) 05/04/22 12:50 Globulin 3.2 g/dL (1.3-4.6) 05/04/22 12:50 SARS-CoV-2 Ag (Rapid) negative (Negative) 05/04/22 15:08 Discharge Plan Discharge Patient Disposition: Xfer Short-Term Hosp Clinical Impression: Cerebrovascular accident Condition: Stable Coding Level of Care Code ED Senior Dot Net Developer for Rivas Garcia
[2022-05-04] MEDS: labetalol 5 mg/mL SDV 20mL 10 MG IVP (12:58)
--- NOTE | 2022-05-04 12:58 | ECG_ITS ---
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
[2022-05-04 12:59] LABS: Basophils # 0.1 10^3/uL (0.0-0.1); Basophils % 0.5 %; Eosinophils # 0.4 10^3/uL (0.0-0.8); Eosinophils % 3.7 %; Hematocrit 42.6 % (37.0-47.0); Hemoglobin 13.9 g/dL (11.5-15.3); Lymphocytes # 2.3 10^3/uL (0.8-4.8); Lymphocytes % 23.4 %; Mean Corpuscular HGB Conc 32.6 g/dL (30.0-36.0); Mean Corpuscular Hemoglobin 30.5 pg (28.0-34.0); Mean Corpuscular Volume 93.4 fl (81-99); Mean Platelet Volume 11.1 fL (7.4-10.4); Monocytes # 0.6 10^3/uL (0.2-0.9); Monocytes % 6.5 %; Neutrophils # 6.36 10^3/uL (1.8-7.7); Neutrophils % 65.6 %; Nucleated Red Blood Cells % 0 %; Platelet Count 257 10^3/cmm (130-400); Red Blood Count 4.56 10^6/uL (4.1-5.3); Red Cell Distribution Width 14.1 % (12.1-15.1); White Blood Count 9.7 10^3/uL (4.0-10.0)
[2022-05-04 13:09] LABS: INR 1.04 (0.8-1.2)
[2022-05-04 13:14] LABS: Alanine Aminotransferase 12 U/L (0-33); Albumin Level 4.3 g/dL (3.5-5.2); Alkaline Phosphatase 94 U/L (35-105); Anion Gap 15.1 (5-19); Aspartate Amino Transferase 14 U/L (0-32); Blood Urea Nitrogen 24 mg/dL (8-23); Calcium 9.4 mg/dL (8.5-10.5); Carbon Dioxide 24 mmol/L (22-29); Chloride 102 mmol/L (98-107); Globulin 3.2 g/dL (1.3-4.6); Glomerular Filtration Rate 55.6 mL/min (90-130); Glucose 78 mg/dL (65-115); Osmolality Calculated 287 mOsm/kg (285-295); Potassium 4.1 mmol/L (3.5-5.1); Sodium 137 mmol/L (136-145); Total Bilirubin 0.3 mg/dL (0.15-1.2); Total Protein 7.5 g/dL (6.6-8.7)
--- NOTE | 2022-05-04 13:17 | PC.NURSE ---
pt placed on continuous nibp, spo2, and cm
--- NOTE | 2022-05-04 14:00 | PC.NURSE ---
PT HAS CHRONIC WEAKNESS OF RIGHT ARM
[2022-05-04] MEDS: sodium chloride 0.9% 50 ML 200 ML IV (14:55)
[2022-05-04 15:29] LABS: SARS Covid-2 Antigen negative (Negative)
--- NOTE | 2022-05-04 16:07 | CTR_ITS ---
PROCEDURE INFORMATION: Exam: CTA Head With Contrast, Arteriography Exam date and time: 05/04/2022 4:13 PM Age: 66 years old Clinical indication: Speech disturbance; Additional info: CVA TECHNIQUE: Imaging protocol: Computed tomographic angiography of the head with contrast. Exam focused on the arteries. 3D rendering (Not supervised by radiologist): MIP reconstructed images were created by the technologist. Radiation optimization: All CT scans at this facility use at least one of these dose optimization techniques: automated exposure control; mA and/or kV adjustment per patient size (includes targeted exams where dose is matched to clinical indication); or iterative reconstruction. Contrast material: OMNI 350; Contrast volume: 100 ml; Contrast route: INTRAVENOUS (IV); COMPARISON: CT head thrombolytic [id number] 05/04/2022 12:43 PM RADIATION DOSE METRICS: Total DLP (mGy-cm): 370.74 FINDINGS: ANTERIOR CIRCULATION: Right internal carotid artery: Noncalcified plaque right proximal cavernous internal carotid artery, 50-60% stenosis. Right middle cerebral artery: No occlusion or significant stenosis. No aneurysm. Right anterior cerebral artery: No occlusion or significant stenosis. No aneurysm. Left internal carotid artery: Intracranial segment is patent with no significant stenosis. No aneurysm. Left middle cerebral artery: No occlusion or significant stenosis. No aneurysm. Left anterior cerebral artery: No occlusion or significant stenosis. No aneurysm. POSTERIOR CIRCULATION: Right vertebral artery: No occlusion or significant stenosis. No aneurysm. Left vertebral artery: Mild left vertebral artery V4 segment calcified plaque, less than 25% stenosis. Basilar artery: No occlusion or significant stenosis. No aneurysm. Right posterior cerebral artery: No occlusion or significant stenosis. No aneurysm. Left posterior cerebral artery: No occlusion or significant stenosis. No aneurysm. Left common carotid artery: Left common carotid artery bifurcation minimal smooth calcified plaque, less than 10% stenosis. Brain: Chronic lacunar infarctions. Ventricles: No ventriculomegaly. Bones/joints: Unremarkable. No acute fracture. Soft tissues: Unremarkable. PROCEDURE INFORMATION: Exam: CTA Neck With Contrast Exam date and time: 05/04/2022 4:13 PM Age: 66 years old Clinical indication: Speech disturbance; Additional info: CVA TECHNIQUE: Imaging protocol: Computed tomographic angiography of the neck with contrast. 3D rendering (Not supervised by radiologist): MIP reconstructed images were created by the technologist. Radiation optimization: All CT scans at this facility use at least one of these dose optimization techniques: automated exposure control; mA and/or kV adjustment per patient size (includes targeted exams where dose is matched to clinical indication); or iterative reconstruction. Contrast material: OMNI 350; Contrast volume: 100 ml; Contrast route: INTRAVENOUS (IV); COMPARISON: CT neck w con* [id number] 11/05/2018 2:47 PM RADIATION DOSE METRICS: Total DLP (mGy-cm): 340.74 FINDINGS: Tubes, catheters and devices: Cervical neural stimulator present. Right common carotid artery: Mild right common carotid artery bifurcation smooth calcified plaque, less than 10% stenosis. Right internal carotid artery: No stenosis of the extracranial segment. No dissection or occlusion. Right external carotid artery: No occlusion or stenosis of the origin. Left common carotid artery: No stenosis. No dissection or occlusion. Left internal carotid artery: No stenosis of the extracranial segment. No dissection or occlusion. Left external carotid artery: No occlusion or stenosis of the origin. Right vertebral artery: No stenosis. No dissection or occlusion. Left vertebral artery: No stenosis. No dissection or occlusion. Thyroid: Mildly heterogeneous right thyroid lobe with marginally calcified 1.8 cm nodule. Lymph nodes: Left hilar granulomatous hermes calcifications are present. Soft tissues: Normal. No significant soft tissue swelling. Bones/joints: Moderate left C2-C3 primary facet osteoarthritis. Lungs: Mild centrilobular emphysema bilaterally. CT/CT angio headneck* [id number] IMPRESSION: 1. No acute extracranial vascular abnormality identified. 2. Noncalcified plaque right proximal cavernous internal carotid artery, 50-60% stenosis. 3. Chronic lacunar infarctions. IMPRESSION: 1. Recommend nonemergent thyroid sonography for further evaluation of a right thyroid nodule. 2. Pulmonary emphysema. COMMENTS: Consistent with the [employer]'s Incidental Findings Committee white paper (J Am Arun Radiol 2015): In patients aged 35 years and older with an incidental thyroid nodule equal to or greater than 1.[address], MRI or extrathyroidal US, further evaluation with dedicated thyroid US is recommended for patients with normal life expectancy and without comorbidities. For smaller nodules without suspicious features, no further evaluation or follow up is recommended. REFERENCES: NASCET CRITERIA. The degree of stenosis in the cervical segment of the internal carotid artery is based on NASCET criteria. Normal is no stenosis. Mild is less than 50% stenosis. Moderate is 50-69% stenosis. Severe is 70% to 99% stenosis. Total occlusion is no detectable patent lumen.
[2022-05-04] MEDS: iohexol 350 mg/mL 500 mL Btl (per mL) IV (16:23)
--- NOTE | 2022-05-04 18:48 | P.HP_ITS ---
Providers/Chief Complaint Admitting Physician: Jordon Rosenthal MD Chief Complaint: STROKE LIKE SYMPTOMS History of Present Illness Lani Kaufman is a 66 year old female with a past medical tree of chronic right upper extremity weakness due to accident, complex regional pain syndrome, on chronic methadone, history of multiple CVAs in the past, COPD, cervical radiculopathy, smoker, hypertension, hyperlipidemia, who presents [facility] due to facial droop, slurring of her words. 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 Patient came in as a stroke alert, [facility] is contacted, CT head was negative for acute stroke negative for intracranial bleed, NIH stroke scale was 3, she was given tPA, [facility] she had waxing waning symptoms, her left facial droop improved, but then worsened current currently she continues to have a left facial droop,, moderate, some degree of slurring of her words, no trouble swallowing she tells me that she is more weak on the right side, no changes in her vision, however it is very difficult to discern the weakness on the right side especially in the right arm given her chronic weakness, after her accident, and she tells me that she hurts all over she has not received her methadone, so lifting both her legs causes a lot of pain Review of Systems Const: Denies: fever(s) Eyes: Denies: change in vision ENMT: Denies: nasal congestion Card: Denies: chest pain or palpitations Resp: Denies: dyspnea GI: Denies: abdominal pain, nausea or vomiting : Denies: dysuria Musc: Denies: neck pain or back pain Skin/Breast: Denies: rash Neuro: Denies: headache(s), dizziness or vertigo Psych: Denies: anxiety Endo: Denies: polyuria or polydipsia Medications/Allergies Home Medications Medication Instructions Recorded Confirmed Last Taken Type coenzyme Q10 100 mg capsule 100 mg PO DAILY 08/15/20 05/04/22 05/04/22 History (CoQ-10) turmeric 400 mg capsule 400 mg PO DAILY 08/15/20 05/04/22 05/04/22 History clobetasol 0.05 % topical cream 1 applic topical BID 2 weeks #45 11/16/20 05/04/22 Unknown Rx grams elderberry fruit 200 mg capsule 400 mg PO DAILY 01/23/21 05/04/22 05/04/22 History tizanidine 4 mg tablet 4 mg PO Q8H PRN muscle spasticity 04/29/21 05/04/22 Unknown Rx #90 tabs omeprazole 20 mg capsule,delayed 40 mg PO BID gastritis 30 days 10/30/21 05/04/22 05/04/22 Rx release #120 caps albuterol sulfate 90 mcg/actuation 2 puff inhalation Q6H PRN 02/13/22 05/04/22 Unknown Rx aerosol inhaler shortness of breath or wheezing #8.5 grams amlodipine 5 mg tablet 5 mg PO DAILY blood pressure #30 03/18/22 05/04/22 05/04/22 Rx tabs venlafaxine 150 mg 150 mg PO QAM pain 90 days #90 caps 04/15/22 05/04/22 05/04/22 Rx capsule,extended release 24 hr (Effexor XR) aspirin 81 mg tablet,delayed 81 mg PO DAILY 05/04/22 05/04/22 05/04/22 History release methadone 5 mg tablet 5 mg PO BID 05/04/22 05/04/22 05/04/22 History valsartan 80 mg tablet 80 mg PO DAILY 05/04/22 05/04/22 05/04/22 History Allergies Allergy/AdvReac Type Severity Reaction Status Date / Time amitriptyline AdvReac Unknown UNKNOWN Verified 10/30/21 13:22 gabapentin AdvReac UNKNOWN Verified 10/30/21 13:22 naloxegol [From [employer]] AdvReac UNKNOWN Verified 10/30/21 13:22 naproxen AdvReac UNKNOWN Verified 10/30/21 13:22 nifedipine AdvReac UNKNOWN Verified 10/30/21 13:22 PFSH Acute PFSH: Medical History Cervical disc disease with myelopathy COPD (chronic obstructive pulmonary disease) CRPS (complex regional pain syndrome type I) Dysplastic nevus Excision with margins free on 02/04/[address] Beckham [facility]. Headache History of stroke Hypertension Hypoglycemia Vulvar lesion Surgical History History of colonoscopy (08/28/20) cecal polyp, poor prep History of esophagogastroduodenoscopy (EGD) Hx of open fracture RIGHT ARM Hx of right knee surgery Removal right prepatellar cystic bursitis DOS: 08/31/[address] Carson S/P hysterectomy 1984 Family History Mother CAD (coronary artery disease) Hypertension Brother Cancer COLON CANCER Sister Diabetes 2 SISTERS Stroke Denies family history of Clotting disorder Hyperlipidemia Chronic kidney disease (CKD) Anesthesia complication Bleeding disorder Thyroid disease Social History Smoking and tobacco status: current every day smoker cigarettes Years cigarettes smoked: 40 Alcohol intake: never History of recent travel: No Vitals/I&O/Wt Last Vital Signs Pulse 77 05/04/22 18:40 Resp 24 H 05/04/22 18:40 BP 145/91 05/04/22 18:40 Pulse Ox 94 05/04/22 18:40 O2 Del Method 05/04/22 13:26 05/04/22 05/04/22 05/04/22 06:59 14:59 22:59 Intake Total 50.8 / 50.8 Balance 50.8 / 50.8 Weight last 48 hrs Weight 62.142 kg Physical Exam Const: COMMON NORMALS: no acute distress and patient oriented x3 HENMT: COMMON NORMALS: normocephalic HEAD & SCALP: normocephalic Eye: COMMON NORMALS: Equal, round and reactive pupils present and EOMs intact bilaterally Neck/C-Spine: COMMON NORMALS: full ROM and no lymphadenopathy Lymph: LYMPHATIC: no lymphadenopathy noted Chest: COMMONS NORMALS: normal inspection of the chest Resp: COMMON NORMALS: normal respiratory effort, No retractions, No use of accessory muscles and clear to auscultation bilaterally AUSCULTATION: clear to auscultation bilaterally Cardio: COMMON NORMALS: regular rate, regular rhythm, S1 normal heart sound present and S2 normal heart sound present RATE: regular rate RHYTHM: regular rhythm HEART SOUNDS: S1 normal heart sound present and S2 normal heart sound present GI: COMMON NORMALS: Normal to inspection, nondistended, normoactive bowel sounds present, Soft to palpation and non-tender Extremity: COMMON NORMALS: no pedal edema Neuro: COMMON NORMALS: patient oriented x3 OTHER: - On examination left facial droop -Pupils equal round reactive to light -Difficult to do myypbr-am-haos testing, on the right, due to severe pain, and weakness which is chronic and she has a tremor on the right -Hhhpkh-hg-nkfe on the left, is abnormal -Wzev-gx-uqqv difficult to bilaterally due to severe pain -Strength right upper extremity chronically is weak, 3 out of 5 -Left upper extremity strength 5 out of 5 -Bilateral lower extremity strength 3 out of 5 -No paresthesias reported Psych: COMMON NORMALS: mental status grossly normal Data 05/04/22 12:50 05/04/22 12:50 A&P Assessment and plan (1) Cerebrovascular accident: (2) Hypertension: (3) COPD (chronic obstructive pulmonary disease): Plan CVA status post tPA -NIH stroke scale admission was 3 -CT head 1. Chronic right caudate head, bilateral putamen, right anterior limb internal capsule, right thalamic lacunar infarctions. 2. Age appropriate supratentorial and infratentorial atrophy. 3. Moderate chronic white matter microvascular ischemic disease. 4. No acute intracranial abnormality identified. CTA head and neck -INDINGS: Tubes, catheters and devices: Cervical neural stimulator present. Right common carotid artery: Mild right common carotid artery bifurcation smooth calcified plaque, less than 10% stenosis. Right internal carotid artery: No stenosis of the extracranial segment. No dissection or occlusion. Right external carotid artery: No occlusion or stenosis of the origin.? Left common carotid artery: No stenosis. No dissection or occlusion. Left internal carotid artery: No stenosis of the extracranial segment. No dissection or occlusion. Left external carotid artery: No occlusion or stenosis of the origin.? Right vertebral artery: No stenosis. No dissection or occlusion. Left vertebral artery: No stenosis. No dissection or occlusion. Thyroid: Mildly heterogeneous right thyroid lobe with marginally calcified 1.8 cm nodule. Lymph nodes: Left hilar granulomatous hermes calcifications are present. Soft tissues: Normal. No significant soft tissue swelling. Bones/joints: Moderate left C2-C3 primary facet osteoarthritis. Lungs: Mild centrilobular emphysema bilaterally. CT/CT angio headneck* [id number] IMPRESSION: 1. No acute extracranial vascular abnormality identified. 2. Noncalcified plaque right proximal cavernous internal carotid artery, 50-60% stenosis. 3. Chronic lacunar infarctions. ? ? IMPRESSION: 1. Recommend nonemergent thyroid sonography for further evaluation of a right thyroid nodule. 2. Pulmonary emphysema. -Currently persistent left facial droop, slurring of her words, it is difficult to gauge any strength of upper or lower extremities due to her chronic pain, and her right upper extremity she has had a at sitting she chronically has a tremor and weakness -Attempts were made to transfer to [facility] however there are beds are full Plan -Admit to ICU -Neurochecks, aspiration precautions, NIH stroke scale -N.p.o. until formal speech therapy eval -IV fluids -Labetalol as needed for systolic blood pressure greater than 10 or diastolic greater than 105 -Telemetry monitoring -Cardiac echo -Review of patient's CT head shows that she has had multiple lacunar infarcts, in the past, she has had history of CVAs in the past -She denies any issues with hypertension she takes her medications as prescribed -Findings are concerning for embolic events, would highly suggest event monitor on discharge to diagnose underlying atrial fibrillation -Monitor neurologic status closely, monitor for hemorrhagic transformation -Will do CT of the head in the morning -Aspirin 24 hours after tPA -Statin -Lovenox for DVT prophylaxis 24 hours after tPA -She is DNR/DNI, I confirmed this with family at bedside -Chronic pain continue Effexor, continue methadone -Protonix for GI prophylaxis - For acute kidney injury, IV fluids, creatinine 1.0 History of COPD, advised to quit smoking Attestations Medical Necessity Statement*: Patient requires hospitalization, inpatient, greater than 2 midnights, for CVA status post tPA Time Spent in Patient Care: Greater than 35 minutes Coding Level of Care Code Acute Motorcycle 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
[2022-05-04 19:21] LABS: Add Urine Microscopic? NO; Charge for UA Resulting for Rev
[2022-05-04 19:27] LABS: Urine Color Yellow (Yellow)
[2022-05-04 19:28] LABS: Bilirubin Urine Neg (Negative); Blood Urine Neg (Negative); Glucose Urine UA Norm (Normal); Ketones Urine Negative (Negative); Leukocyte Esterase Urine Negative (Negative); Nitrate Urine Negative (Negative); Protein Urine Neg (Negative); Urine Appearance Clear (CLEAR); Urobilinogen Urine Neg (Negative); pH Urine 5 (5-7)
--- NOTE | 2022-05-04 19:31 | CTR_ITS ---
PROCEDURE INFORMATION: Exam: CT Head Without Contrast Exam date and time: 05/04/2022 7:42 PM Age: 66 years old Clinical indication: Other: S/P tpa 1400 - worsening symptoms; Headache; Patient HX: Severe RT sided RODRIGUEZ and neck pain; Additional info: S/P tpa at 2p, worsenign symptoms TECHNIQUE: Imaging protocol: Computed tomography of the head without contrast. Radiation optimization: All CT scans at this facility use at least one of these dose optimization techniques: automated exposure control; mA and/or kV adjustment per patient size (includes targeted exams where dose is matched to clinical indication); or iterative reconstruction. COMPARISON: CT head thrombolytic [id number] 05/04/2022 12:43 PM RADIATION DOSE METRICS: Total DLP (mGy-cm): 1120.18 FINDINGS: Brain: Mild diffuse cortical volume loss. Severe hypodensities in supratentorial periventricular and subcortical white matter, consistent with microangiopathy. No intracranial hemorrhage. Small chronic lacunar infarcts in the bilateral lentiform nuclei and right caudate head. Cerebral ventricles: No ventriculomegaly. Paranasal sinuses: Mucosal thickening in the anterior ethmoid air cells. The other sinuses are clear. No air-fluid level. Mastoid air cells: See Bones/joints finding. Orbital cavities: Prior cataract surgery. 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 The mastoids are clear. Soft tissues: Unremarkable. Vasculature: No hyperdense artery. CT/CT head wo con* [id number] IMPRESSION: 1. Stable CT head. No acute intracranial abnormality.
[2022-05-04 19:34] LABS: Amphetamines Screen Urine Negative (Negative); Barbiturates Screen Urine Negative (Negative); Benzodiazepines Screen Urine Negative (Negative); Cocaine Screen Urine Negative (Negative); Opiate Screen Urine Negative (Negative); PCP Screen Urine Negative (Negative); THC Screen Urine Negative (Negative)
--- NOTE | 2022-05-04 19:43 | PC.NURSE ---
Ethan Orourke Report called to receiving facility - [facility] @ [phone]. Spoke with Kusum Robertson RN, all questions have been answered.
== END 2022-05-04 20:40 | disposition short-term general hospital (02) ==
LOC: ER 15:34 → ICU 20:35
PROVIDERS: Emergency Provider Emergency Medicine
DX: I63.9 Cerebral infarction, unspecified (principal); Z20.822 Contact with and (suspected) exposure to COVID-19; F17.210 Nicotine dependence, cigarettes, uncomplicated; J44.9 Chronic obstructive pulmonary disease, unspecified; Z86.73 Personal history of transient ischemic attack (TIA), and cerebral infarction without residual deficits; I10 Essential (primary) hypertension
CPT/HCPCS: 70450; 70496; 70498; 80053; 80306; 81003; 85025; 85610; 85730; 87426; 93005; 96365; 96375; 99291; J2997; J3490; Q9967

== ENCOUNTER → 2022-05-21 08:51 | Outpatient (BNVA) | payer MEDICARE, SELFPAY | PROVIDERS: PCP Family Medicine Adult Medicine; Visit Provider Specialist | DX: G47.19 Other hypersomnia (principal); F11.20 Opioid dependence, uncomplicated; J44.9 Chronic obstructive pulmonary disease, unspecified; I10 Essential (primary) hypertension; I69.313 Psychomotor deficit following cerebral infarction; I69.322 Dysarthria following cerebral infarction; F17.210 Nicotine dependence, cigarettes, uncomplicated | CPT/HCPCS: 99205 ==

== ENCOUNTER → 2022-05-22 10:19 | Outpatient (BNVA) | payer MEDICARE, SELFPAY | PROVIDERS: PCP Family Medicine Adult Medicine; Referring Provider Specialist; Visit Provider Specialist | DX: G47.19 Other hypersomnia (principal); R41.82 Altered mental status, unspecified | CPT/HCPCS: 95812; 95816 ==

== ENCOUNTER → 2022-05-28 13:06 | Outpatient (BNVA) | payer MEDICARE, SELFPAY | PROVIDERS: PCP Family Medicine Adult Medicine; Visit Provider Internal Medicine | DX: Z79.891 Long term (current) use of opiate analgesic (principal); I63.9 Cerebral infarction, unspecified | CPT/HCPCS: 93270 ==

== ENCOUNTER 2022-06-06 16:41 | Emergency (ER) | payer MEDICARE, SELFPAY ==
[2022-06-06] VITALS (8 sets, daily range): BP systolic 132–158; BP diastolic 75–94; PULSE 68–79; RESP 16–22; TEMP 36.7; O2SAT 94–98
--- NOTE | 2022-06-06 17:01 | XRR_ITS ---
PROCEDURE INFORMATION: Exam: XR Chest Exam date and time: 06/06/2022 5:14 PM Age: 66 years old Clinical indication: Shortness of breath; Additional info: SOB, cp, weakness since yesterday, heart monitor has been on for a week, HX of stroke in April TECHNIQUE: Imaging protocol: Radiologic exam of the chest. Views: 1 view. COMPARISON: CT chest w con* [id number] 01/27/2018 3:17 PM FINDINGS: Tubes, catheters and devices: Heart monitor over the left thorax along with an apparent stimulator over the left abdomen. Lungs: Unremarkable. No consolidation. Pleural spaces: Unremarkable. No pleural effusion. No pneumothorax. Heart/Mediastinum: Unremarkable. No cardiomegaly. Bones/joints: Unremarkable. XR/XR chest 1V portable [id number] IMPRESSION: Heart monitor over the left thorax along with an apparent stimulator over the left abdomen.
--- NOTE | 2022-06-06 17:26 | W.ED.SOB ---
HPI - SOB/Dyspnea General: Chief Complaint: Shortness of Breath/Dyspnea Stated Complaint: sob/chest pain/low ox Time Seen by Provider: 06/06/22 17:26 History of Present Illness: HPI Narrative: Ms Kaufman is a 66-year-old lady with history of stroke, CKD, COPD with recent cessation of tobaccoism presenting to the emergency department for illness and chest pain. She reports feeling increased fatigue and generalized malaise yesterday. She was up doing something today and had sudden onset of substernal chest heaviness associated with worsening shortness of breath. Intensity symptoms moderate to severe. Course has persisted. No other specific changes in health, exacerbating, or alleviating factors identified. 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 [facility]. Headache History of stroke Hypertension Long-term use of high-risk medication Multiple lacunar infarcts Opioid contract exists Opioid dependence Stopped smoking 05/18/2022 she stopped smoking and is now on nicotine patch and using a nicotine inhaler at times. Vulvar lesion Surgical History History of colonoscopy (08/28/20) cecal polyp, poor prep History of esophagogastroduodenoscopy (EGD) Hx of open fracture RIGHT ARM Hx of right knee surgery Removal right prepatellar cystic bursitis DOS: 08/31/[address] Carson S/P hysterectomy 1985 Family History Mother CAD (coronary artery disease) Hypertension Brother Cancer COLON CANCER Sister Diabetes 2 SISTERS Stroke Denies family history of Clotting disorder Hyperlipidemia Chronic kidney disease (CKD) Anesthesia complication Bleeding disorder Thyroid disease Social History Smoking and tobacco status: current every day smoker cigarettes Years cigarettes smoked: 40 Alcohol intake: never History of recent travel: No Physical Exam Const: COMMON NORMALS: alert GENERAL APPEARANCE: cooperative, well developed and ill appearing (Chronically) HENMT: COMMON NORMALS: normocephalic and atraumatic HEAD & SCALP: normocephalic and atraumatic Eye: COMMON NORMALS: conjunctivae normal CONJUNCTIVA: Yes conjunctivae normal SCLERA: sclerae normal Neck/C-Spine: COMMON NORMALS: supple GENERAL: Yes trachea midline Resp: EFFORT & INSPECTION: Yes able to speak in complete sentences AUSCULTATION: diminished lung sounds Cardio: COMMON NORMALS: regular rate and regular rhythm RATE: regular rate RHYTHM: regular rhythm GI: COMMON NORMALS: Soft to palpation PALPATION: Yes Soft to palpation and No Tenderness to palpation present (GI) PERCUSSION: normal to percussion Extremity: GENERAL: Yes normal exam except as noted and No edema Neuro: COMMON NORMALS: moves all extremities SENSORIUM/ORIENTATION: Yes alert and No Orientation impaired Psych: COMMON NORMALS: mental status grossly normal and Normal thought process present THOUGHT PROCESS: Normal thought process present Course Vital Signs: Vital signs: Vital Signs Temperature 98.0 F 06/06/22 16:52 Pulse Rate 71 06/06/22 20:58 Respiratory Rate 18 06/06/22 20:58 Blood Pressure 132/75 06/06/22 20:58 Pulse Oximetry 95 06/06/22 20:58 Oxygen Delivery Me thod 06/06/22 19:36 MDM - SOB/Dyspnea Medical Decision Making 66-year-old lady presenting with 1 day history of generalized illness including chest discomfort and shortness of breath. Exam as above. Labs notable for normal hemoglobin, no leukocytosis, normal platelet count. Metabolic panel without significant arrangement. Baseline CKD. Negative range 2-hour delta troponin. Rapid viral testing is negative. Overall comparison labs are similar to recent prior. Chest x-ray with no lobar consolidation or pneumothorax, without recent similar study for comparison. Patient endorses possible confusion and disorientation feeling with history of stroke therefore CT imaging was obtained negative for acute intracranial pathology which is similar to prior. Patient treated during ED course with aspirin and albuterol/ipratropium bromide and felt improved. Most likely etiology of patient's symptoms is COPD exacerbation. The patient appears improved on reassessment and does not require supplemental oxygen. Plan to treat in the outpatient setting with course of steroids, antibiotics, taper of albuterol MDI. The results of ED evaluation were discussed with the patient including possible disposition options. I discussed risk stratification by heart score and estimated risk of major adverse cardiac events. The patient wishes to proceed with outpatient management. I discussed prescriptions and/or symptomatic cares (if applicable) including appropriate and responsible use, followup plan, and return precautions. The patient verbalized understanding and felt safe for discharge. Medical Records I reviewed the patient's medical records. Lab Data I reviewed the patient's lab results. 06/06/22 17:34 06/06/22: Labs/Radiology: Radiology Impressions Chest X-Ray 06/06/22 17: IMPRESSION: Heart monitor over the left thorax along with an apparent stimulator over the left abdomen. Head CT 06/06/22 18:18 IMPRESSION: Negative for intracranial hemorrhage or mass effect. Laboratory Results WBC 9.0 10^3/uL (4.0-10.0) 06/06/22: RBC 4.76 10^6/uL (4.1-5.3) 06/06/22: Hgb 14.3 g/dL (11.5-15.3) 06/06/22: Hct 44.6 % (37.0-47.0) 06/06/22: MCV 93.7 fl (81-99) 06/06/22: MCH 30.0 pg (28.0-34.0) 06/06/22: MCHC 32.1 g/dL (30.0-36.0) 06/06/22 RDW 13.5 % (12.1-15.1) 06/06/22: Plt Count 247 10^3/cmm (130-400) 06/06/22 MPV 10.9 fL (7.4-10.4) H 06/06/22: Neut % (Auto) 72.3 % 06/06/22 17:34 Lymph % (Auto) 17.5 % 06/06/22 17:34 [place] % (Auto) 7.0 % 06/06/22 17:34 Eos % (Auto) 2.7 % 06/06/22 17:34 Baso % (Auto) 0.3 % 06/06/22 17:34 Neut # (Auto) 6.48 10^3/uL (1.8-7.7) 06/06/22 17:34 Lymph # (Auto) 1.6 10^3/uL (0.8-4.8) 06/06/22 17:34 [place] # (Auto) 0.6 10^3/uL (0.2-0.9) 06/06/22 17:34 Eos # (Auto) 0.2 10^3/uL (0.0-0.8) 06/06/22 17:34 Baso # (Auto) 0.0 10^3/uL (0.0-0.1) 06/06/22 17:34 Nucleated RBC % (auto) 0 % 06/06/22 17:34 Nucleated RBCs # 0.0 /100WBC 06/06/22 17:34 Sodium 144 mmol/L (136-145) 06/06/22 17:34 Potassium 4.0 mmol/L (3.5-5.1) 06/06/22 17:34 Chloride 104 mmol/L (98-107) 06/06/22 17:34 Carbon Dioxide 29 mmol/L (22-29) 06/06/22 17:34 Anion Gap 15.0 (5-19) 06/06/22 17:34 BUN 17 mg/dL (8-23) 06/06/22 17:34 Creatinine 1.0 mg/dL (0.5-0.9) H 06/06/22 17:34 GFR Calculation 55.6 mL/min (90-130) L 06/06/22 17:34 Glucose 92 mg/dL (65-115) 06/06/22 17:34 Calculated Osmolality 299 mOsm/kg (285-295) H 06/06/22 17:34 Calcium 9.7 mg/dL (8.5-10.5) 06/06/22 17:34 Total Bilirubin 0.4 mg/dL (0.15-1.2) 06/06/22 17:34 AST 16 U/L (0-32) 06/06/22 17:34 ALT 22 U/L (0-33) 06/06/22 17:34 Alkaline Phosphatase 107 U/L (35-105) H 06/06/22 17:34 Troponin T Baseline 16 ng/L (0-10) H 06/06/22 17:34 Troponin T 120 Minute 14.93 ng/L (0-10) H 06/06/22 18:49 Delta Troponin T -1.07 ABS# (0-10) L 06/06/22 18:49 NT-Pro-B Natriuret Pep 372 pg/mL (0-125) H 06/06/22 17:34 Total Protein 7.9 g/dL (6.6-8.7) 06/06/22 17:34 Albumin 4.4 g/dL (3.5-5.2) 06/06/22 17:34 Globulin 3.5 g/dL (1.3-4.6) 06/06/22 17:34 Influenza Type A Ag negative (Negative) 06/06/22 17:51 Influenza Type B Ag negative (Negative) 06/06/22 17:51 SARS-CoV-2 Ag (Rapid) Negative (Negative) 06/06/22 17:51 Discharge Plan Discharge Patient Disposition: Home Clinical Impression: Acute exacerbation of chronic obstructive airways disease, Atypical chest pain Condition: Stable Prescriptions: New albuterol sulfate 90 mcg/actuation HFA aerosol inhaler 2 inh inhalation Q4H PRN (Reason: shortness of breath or wheezing) Qty: 8.5 0RF No Action coenzyme Q10 [CoQ-10] 100 mg capsule 100 mg PO DAILY turmeric 400 mg capsule 400 mg PO DAILY elderberry fruit 200 mg capsule 400 mg PO DAILY tizanidine 4 mg tablet 4 mg PO Q8H PRN (Reason: muscle spasticity) Qty: 90 1RF clobetasol 0.05 % cream 1 applic topical BID 14 Days Qty: 45 2RF Rx Instructions: use twice daily for two weeks only and then twice a week after that. atorvastatin 40 mg tablet 40 mg PO DAILY aspirin 325 mg tablet 325 mg PO DAILY valsartan 80 mg tablet 80 mg PO DAILY Qty: 90 1RF albuterol sulfate 90 mcg/actuation HFA aerosol inhaler 2 puff inhalation Q6H PRN (Reason: shortness of breath or wheezing) Qty: 8.5 1RF amlodipine 5 mg tablet 5 mg PO DAILY Qty: 30 5RF venlafaxine [Effexor XR] 150 mg capsule,extended release 24hr 150 mg PO QAM 90 Days Qty: 90 1RF omeprazole 40 mg capsule,delayed release(DR/EC) See Rx Instructions .ROUTE .COMPLEX Qty: 120 3RF Dose Instruction: take 1 capsule BY MOUTH TWICE DAILY FOR GASTRITIS Rx Instructions: take 1 capsule BY MOUTH TWICE DAILY FOR GASTRITIS methadone 5 mg Tablet 5 mg PO BID Discharge Orders: Discharge ED (Routine); Ordered 06/06/22 Ordered By: Mitch Bajwa Referrals: Jefferson Jackson MD [Primary Care Provider] - Discharge Diet: Usual diet Discharge Activity: Increase activity as tolerated Activity Restrictions/Additional Instructions: Thank you for visiting the emergency department. You were seen and evaluated for an episode of chest pain and shortness of breath. The exact cause of your symptoms is unclear though as discussed does not appear to need inpatient management at this time. Please follow-up with your primary care provider and I will message case management for outpatient cardiac testing. I will prescribe steroids and antibiotics. Please also use your albuterol metered-dose inhaler 2 puffs every 4 hours for 24 hours followed by 2 puffs every 6 hours for 24 hours followed by 2 puffs every 8 hours for 24 hours and then return to the normal schedule. Return to the emergency department for recurrence of symptoms or anything else that you are concerned about and feel needs emergency department evaluation. Coding Level of Care Code ED [employer] Instrument Repairer for Rivas Garcia Exam Comprehensive
[2022-06-06] MEDS: aspirin 81 mg Chew Tablet 324 MG PO (17:36)
[2022-06-06 18:06] LABS: Basophils % 0.3 %; Eosinophils # 0.2 10^3/uL (0.0-0.8); Eosinophils % 2.7 %; Hematocrit 44.6 % (37.0-47.0); Hemoglobin 14.3 g/dL (11.5-15.3); Lymphocytes # 1.6 10^3/uL (0.8-4.8); Lymphocytes % 17.5 %; Mean Corpuscular HGB Conc 32.1 g/dL (30.0-36.0); Mean Corpuscular Volume 93.7 fl (81-99); Mean Platelet Volume 10.9 fL (7.4-10.4); Monocytes # 0.6 10^3/uL (0.2-0.9); Neutrophils # 6.48 10^3/uL (1.8-7.7); Neutrophils % 72.3 %; Nucleated Red Blood Cells % 0 %; Platelet Count 247 10^3/cmm (130-400); Red Blood Count 4.76 10^6/uL (4.1-5.3); Red Cell Distribution Width 13.5 % (12.1-15.1)
--- NOTE | 2022-06-06 18:18 | CTR_ITS ---
PROCEDURE INFORMATION: Exam: CT Head Without Contrast Exam date and time: 06/06/2022 6:27 PM Age: 66 years old Clinical indication: Altered mental status/memory loss; Confusion or disorientation; Additional info: Confusion, HX stroke TECHNIQUE: Imaging protocol: Computed tomography of the head without contrast. Radiation optimization: All CT scans at this facility use at least one of these dose optimization techniques: automated exposure control; mA and/or kV adjustment per patient size (includes targeted exams where dose is matched to clinical indication); or iterative reconstruction. COMPARISON: CT head wo con* [id number] 05/04/2022 7:42 PM RADIATION DOSE METRICS: Total DLP (mGy-cm): 1077.38 FINDINGS: Brain: Moderate diffuse white matter disease thing chronic microvascular ischemic changes. Cerebral ventricles: No ventriculomegaly. Paranasal sinuses: Visualized sinuses are unremarkable. No fluid levels. Mastoid air cells: Visualized mastoid air cells are well aerated. 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 CT/CT head wo con* [id number] IMPRESSION: Negative for intracranial hemorrhage or mass effect.
[2022-06-06 18:33] LABS: Influenza A by IFA negative (Negative); Influenza B by IFA negative (Negative)
[2022-06-06 18:37] LABS: SARS Covid-2 Antigen Negative (Negative)
[2022-06-06 18:37] LABS: Alanine Aminotransferase 22 U/L (0-33); Albumin Level 4.4 g/dL (3.5-5.2); Alkaline Phosphatase 107 U/L (35-105); Aspartate Amino Transferase 16 U/L (0-32); Blood Urea Nitrogen 17 mg/dL (8-23); Calcium 9.7 mg/dL (8.5-10.5); Carbon Dioxide 29 mmol/L (22-29); Chloride 104 mmol/L (98-107); Globulin 3.5 g/dL (1.3-4.6); Glomerular Filtration Rate 55.6 mL/min (90-130); Glucose 92 mg/dL (65-115); NT Pro B Type Natriuretic Pept 372 pg/mL (0-125); Osmolality Calculated 299 mOsm/kg (285-295); Sodium 144 mmol/L (136-145); Total Bilirubin 0.4 mg/dL (0.15-1.2); Total Protein 7.9 g/dL (6.6-8.7)
[2022-06-06 19:32] LABS: Troponin(5th) Baseline 16 ng/L (0-10)
[2022-06-06] MEDS: ipratropium-albuterol 3 mL Neb INHALATION (19:34)
[2022-06-06 20:24] LABS: Troponin 5 2HR 14.93 ng/L (0-10)
[2022-06-06 20:26] LABS: Troponin 5 2HR Delta -1.07 ABS# (0-10)
== END 2022-06-06 20:59 | disposition home or self-care (01) ==
PROVIDERS: Emergency Provider Emergency Medicine; PCP Family Medicine Adult Medicine
DX: J44.1 Chronic obstructive pulmonary disease with (acute) exacerbation (principal); R07.89 Other chest pain; Z79.82 Long term (current) use of aspirin; Z20.822 Contact with and (suspected) exposure to COVID-19; F17.210 Nicotine dependence, cigarettes, uncomplicated; I12.9 Hypertensive chronic kidney disease with stage 1 through stage 4 chronic kidney disease, or unspecified chronic kidney disease; N18.2 Chronic kidney disease, stage 2 (mild); Z86.73 Personal history of transient ischemic attack (TIA), and cerebral infarction without residual deficits
CPT/HCPCS: 36415; 70450; 71045; 80053; 83880; 84484; 85025; 87426; 87804; 94640; 99285

== ENCOUNTER 2022-07-10 20:00 | Outpatient (CLI) | payer MEDICARE, SELFPAY | END 2022-07-10 20:01 | disposition home or self-care (01) | LOC: SLEEP 07-11 04:12 | PROVIDERS: PCP Family Medicine Adult Medicine; Visit Provider Specialist | DX: G47.10 Hypersomnia, unspecified (principal); G47.33 Obstructive sleep apnea (adult) (pediatric) | CPT/HCPCS: 95810 ==

== ENCOUNTER → 2022-07-14 11:51 | Outpatient (BNVA) | payer MEDICARE, SELFPAY | PROVIDERS: PCP Family Medicine Adult Medicine; Visit Provider Internal Medicine | DX: I12.9 Hypertensive chronic kidney disease with stage 1 through stage 4 chronic kidney disease, or unspecified chronic kidney disease (principal); N18.2 Chronic kidney disease, stage 2 (mild); F17.210 Nicotine dependence, cigarettes, uncomplicated; J44.9 Chronic obstructive pulmonary disease, unspecified; I69.391 Dysphagia following cerebral infarction; I63.81 Other cerebral infarction due to occlusion or stenosis of small artery | CPT/HCPCS: 93005; 99204 ==

== ENCOUNTER → 2022-08-13 09:47 | Outpatient (BNVA) | payer MEDICARE, SELFPAY | PROVIDERS: PCP Family Medicine Adult Medicine; Visit Provider Specialist | DX: G47.19 Other hypersomnia (principal); G31.84 Mild cognitive impairment of uncertain or unknown etiology; R51.9 Headache, unspecified; G90.50 Complex regional pain syndrome I, unspecified; Z86.73 Personal history of transient ischemic attack (TIA), and cerebral infarction without residual deficits; Z79.891 Long term (current) use of opiate analgesic; Z87.891 Personal history of nicotine dependence; Z72.3 Lack of physical exercise | CPT/HCPCS: 99214 ==

== ENCOUNTER → 2022-08-21 09:26 | Outpatient (BNVA) | payer MEDICARE, SELFPAY | PROVIDERS: PCP Family Medicine Adult Medicine; Visit Provider Nurse Practitioner Family | DX: I63.9 Cerebral infarction, unspecified (principal); F17.210 Nicotine dependence, cigarettes, uncomplicated | CPT/HCPCS: 99213 ==

== ENCOUNTER 2022-08-22 09:43 | Outpatient (CLI) | payer MEDICARE, SELFPAY ==
--- NOTE | 2022-08-22 | ECG_ITS ---
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 Interpretive Statements NAME OF STUDY: LEXISCAN SESTAMIBI STRESS TEST INDICATION: [Chest Pain, ] Procedure: At the baseline, the blood pressure was 139/93mmHg with a heart rate of 70 bpm. The electrocardiogram showed normal sinus rhythm, normal axis with normal ST and T's. The Lexiscan was infused over a period of 20 seconds. A total of 0.4 mg of Lexiscan was infused. The stress phase was continued for a total of 5 minutes. Heart rate was at the end of stress phase was 88 bpm and a blood pressure of 137/85 mmHg. The EKG at the peak infusion revealed normal sinus rhythm with no significant ST-T wave changes. Sestamibi was injected 20 seconds after the Lexiscan infusion. Blood pressure at the end of recovery phase was 133/86 mmHg with a heart rate of 85 bpm. Conclusion: 1. Normal EKG response to Lexiscan infusion 2. No Lexiscan induced chest pain or cardiac arrhythmia. 3. Normal blood pressure and heart rate response. 4. Sestamibi/sestamibi perfusion scan pending; see separate report. Electronically Signed On 08-24-2022 15:19:55 CDT by Romero Ny M.D. [id number]
[2022-08-22 10:05] VITALS: BMI 24.3
--- NOTE | 2022-08-22 10:26 | NMCV_ITS ---
NM sierra perf SPECT r/s* [id number] Lani Kaufman Age: 67 Gender: F : 1955 Exam Date: 08/22/2022 10:26 Ordering Phys: Romero Ny M.D ([email or web address]) Technologist: CHANDAN Franks Exam Location: [facility] Indications: CHEST PAIN STRESS TEST [facility] IMAGE PROTOCOL Rest/Stress 1 Lexiscan Day Radiopharmaceutical Dose (mCi) Administration Site Administered by Rest: Tc-99m 10.5 IV Constantine Cooley, REJOINER Sestamibi Stress:Tc-99m 31.5 IV Constantine Cooley, REJOINER Sestamibi Rest: 22-Aug-2022 60 Discovery 630 Stress: 22-Aug-2022 30 Discovery 630 0.4mg Lexiscan. Supine position only as patient was unable to lay prone. SPECT RESULTS Technical Quality: Excellent Raw Data Analysis: Normal Image Corrections: No attenuation or motion correction applied Summed Stress Score: 0 Summed Rest Score: 0 Summed Difference Score: 0 PERFUSION FINDINGS SPECT images demonstrate homogeneous tracer distribution throughout the myocardium. FUNCTIONAL RESULTS (calculated via Gated SPECT) Stress Image LV EF (%): 88 Stress EDV (mL):73 TID: 1.09 Stress ESV (mL):9 FUNCTIONAL FINDINGS: There is normal left ventricular systolic function. IMPRESSIONS 1. Normal myocardial perfusion imaging with no evidence of ischemia 2. LV systolic function is normal Romero Ny MD (Electronically Signed) Final Date: 23 August 2022 15:17 S
[2022-08-22] MEDS: regadenoson 0.4 Mg/5 ml Syringe IVP (11:55)
[2022-08-22 12:25] VITALS: BP 133/86; PULSE 85
== END 2022-08-22 09:44 | disposition home or self-care (01) ==
PROVIDERS: PCP Family Medicine Adult Medicine; Visit Provider Internal Medicine
DX: R07.9 Chest pain, unspecified (principal)
CPT/HCPCS: 36415; 78452; 93017; 96374; A9500; J2785

== ENCOUNTER → 2022-09-09 11:18 | Outpatient (BNVA) | payer MEDICARE, SELFPAY | PROVIDERS: PCP Family Medicine Adult Medicine; Visit Provider Family Medicine Adult Medicine | DX: R58 Hemorrhage, not elsewhere classified (principal); Z79.891 Long term (current) use of opiate analgesic; Z13.1 Encounter for screening for diabetes mellitus; N18.31 Chronic kidney disease, stage 3a; I12.9 Hypertensive chronic kidney disease with stage 1 through stage 4 chronic kidney disease, or unspecified chronic kidney disease; N18.2 Chronic kidney disease, stage 2 (mild); J44.9 Chronic obstructive pulmonary disease, unspecified; Z86.73 Personal history of transient ischemic attack (TIA), and cerebral infarction without residual deficits; F17.210 Nicotine dependence, cigarettes, uncomplicated | CPT/HCPCS: 83036; 99214 ==

== ENCOUNTER 2022-09-23 05:56 | Outpatient (CLI) | payer MEDICARE, SELFPAY ==
[2022-09-23 06:36] LABS: Basophils # 0.1 10^3/uL (0.0-0.1); Basophils % 0.6 %; Eosinophils # 0.4 10^3/uL (0.0-0.8); Eosinophils % 4.8 %; Hematocrit 40.8 % (37.0-47.0); Hemoglobin 13.2 g/dL (11.5-15.3); Lymphocytes # 1.7 10^3/uL (0.8-4.8); Lymphocytes % 19.8 %; Mean Corpuscular HGB Conc 32.4 g/dL (30.0-36.0); Mean Corpuscular Hemoglobin 30.6 pg (28.0-34.0); Mean Corpuscular Volume 94.7 fl (81-99); Mean Platelet Volume 10.4 fL (7.4-10.4); Monocytes # 0.7 10^3/uL (0.2-0.9); Monocytes % 7.7 %; Neutrophils # 5.75 10^3/uL (1.8-7.7); Nucleated Red Blood Cells % 0 %; Platelet Count 210 10^3/cmm (130-400); Red Blood Count 4.31 10^6/uL (4.1-5.3); Red Cell Distribution Width 12.8 % (12.1-15.1); White Blood Count 8.6 10^3/uL (4.0-10.0)
[2022-09-23] MEDS: cephALEXin 500 mg Capsule 2000 MG PO (06:54)
[2022-09-23 06:56] VITALS: BP 146/92; PULSE 72; RESP 16; TEMP 37; O2SAT 96
[2022-09-23 06:57] VITALS: BMI 24.9
--- NOTE | 2022-09-23 07:09 | W.PM.OPSUD ---
Surgery/Procedure H&P Update DATE OF PROCEDURE: September 23, 2022 DATE H&P PERFORMED: 09/09/22 H&P UPDATE INFORMATION: I have reviewed H&P completed within last 30 days, I have examined patient prior to procedure and No changes to prior documentation PREOP DIAGNOSIS: Cryptogenic stroke PRIMARY INDICATION FOR PROCEDURE: Patient had multiple lacunar infarcts on the CT scan. Cardiac source of embolization was considered. The event monitor was unremarkable. For further evaluation, loop recorder was recommended by the neurology service PLANNED PROCEDURE: Operation Date: 09/23/22 07:00 Proposed Procedures p Loop Recorder Insertion [id number],R55, R00.2(Not Applicable) - Trang Roberts MD
[2022-09-23 07:58] VITALS: BP 143/65; PULSE 73; RESP 16; TEMP 36.8; O2SAT 93
--- NOTE | 2022-09-23 08:02 | PC.NURSE ---
procedure with loop recorder insert went uneventful. pt tolerated procedure well. pt complains of no pain. pt educated on restrictions and recovery. pt stated understanding. followup appointment with rina gonsalez set for a week.
--- NOTE | 2022-09-23 09:30 | P.OP_ITS ---
Operative Report Date of procedure: November 09, 2022 Pre-op diagnosis: Preop Diagnosis Cryptogenic stroke Procedure: Date of Procedure: 09/23/2022 Name of the procedure: IMPLANTABLE HEALTH PROMOTION MANAGER INSERTION LOCATION: Cardiac Catheterization Laboratory REFERRING PROVIDER: Dr. Ny PREOPERATIVE DIAGNOSIS: Recurrent CVA, CT scan evidence of multiple lacunar infarctas POSTOPERATIVE DIAGNOSIS: Same. ESTIMATED BLOOD LOSS: None COMPLICATIONS: None. BRIEF HISTORY: Patient presented with recurrent CVA as evidenced by multiple lacunar infarcts by CT scan.she had an event monitor which didn't reveal any significant arrhythmias to explain the symptoms. For further evaluation, an implantable stopper maker was recommended PROCEDURE: The procedure was explained to the patient in detail with the risks and benefits. The risk of bleeding, hematoma, vascular injury, infection and other concomitant complications were explained in detail. The patient understood this well and consented to proceed. The patient was brought to the Cardiac Gravel Machine Operator. The left side of the chest was cleaned and draped in a sterile fashion. 1% Xylocaine was used as local anesthetic agent. An incision was made in the left fourth intercostal space. Making use of the application device, the implantable stopper maker was inserted, subcutaneously. 5 minutes of manual pressure was applied, at the puncture site. The patient tolerated the procedure very well and there were no complications. No bleeding or hematoma. Steri-Strips were applied over the insertion site followed by a sterile dressing. Patient was sent back to the medical floor in stable condition IMPLANTED DEVICE Reveal LINQ Model number: [id number] Serial number: [id number] Make: [employer] Parameters: Standard settings were applied( (tachycardia rate of 150 beats per minute , bradycardia rate of 40 beats per minute and a pause of 3 seconds ; symptom recording -4 episodes of 7.5 minutes. Atrial fibrillation detection was turned on- recording threshold of ->6 minutes. Sensitivity was kept at 0.035 mV) The R wave sensing was 0.4 mV
== END 2022-09-23 08:00 | disposition home or self-care (01) ==
PROVIDERS: PCP Family Medicine Adult Medicine; Visit Provider Internal Medicine Cardiovascular Disease
PROC: (CPT 33285; principal; 2022-09-23 07:00)
DX: I63.9 Cerebral infarction, unspecified (principal)
CPT/HCPCS: 33285; 85025; C1764; C1769

== ENCOUNTER → 2022-10-03 11:03 | Outpatient (BNVA) | payer MEDICARE, SELFPAY | PROVIDERS: PCP Family Medicine Adult Medicine; Visit Provider Nurse Practitioner Family | DX: Z95.818 Presence of other cardiac implants and grafts (principal) | CPT/HCPCS: 99213 ==

== ENCOUNTER 2022-11-06 09:53 | Outpatient (CLI) | payer MEDICARE, SELFPAY ==
--- NOTE | 2022-11-06 10:07 | XR_ITS ---
WS: [id number] EXAMINATION: XR cervical spine 4-5V [id number] REASON FOR EXAM: PRESENCE OF NEURO STIMULATOR COMPARISON: 01/03/2013 FINDINGS: Unchanged positioning of a spinal stimulator at the C2-C4 level. There is no sign of acute fracture or subluxation. Vertebral body heights and intervertebral disc sp aces are maintained. The cervical bony alignment and osseous densities appear normal. There is no p revertebral soft tissue change. XR/XR cervical spine 4-5V 01966 IMPRESSION: No acute osseous abnormality.
== END 2022-11-06 09:54 | disposition home or self-care (01) ==
LOC: RAD 10:01
PROVIDERS: PCP Family Medicine Adult Medicine; Visit Provider General Practice
DX: Z96.82 Presence of neurostimulator (principal)
CPT/HCPCS: 72050

== ENCOUNTER → 2022-12-03 15:35 | Outpatient (BNVA) | payer MEDICARE, SELFPAY | PROVIDERS: PCP Family Medicine Adult Medicine; Visit Provider Internal Medicine | DX: Z45.09 Encounter for adjustment and management of other cardiac device (principal) | CPT/HCPCS: G2066 ==

== ENCOUNTER → 2023-01-08 10:17 | Outpatient (BNVA) | payer MEDICARE, SELFPAY | PROVIDERS: PCP Family Medicine Adult Medicine; Visit Provider Internal Medicine Cardiovascular Disease | DX: Z45.09 Encounter for adjustment and management of other cardiac device (principal) | CPT/HCPCS: G2066 ==

== ENCOUNTER → 2023-01-20 14:52 | Outpatient (BNVA) | payer MEDICARE, SELFPAY | PROVIDERS: PCP Family Medicine Adult Medicine; Visit Provider Specialist | DX: G31.84 Mild cognitive impairment of uncertain or unknown etiology (principal); R29.90 Unspecified symptoms and signs involving the nervous system; I63.81 Other cerebral infarction due to occlusion or stenosis of small artery; G43.711 Chronic migraine without aura, intractable, with status migrainosus | CPT/HCPCS: 99214 ==

== ENCOUNTER → 2023-03-03 11:45 | Outpatient (BNVA) | payer MEDICARE, SELFPAY | PROVIDERS: PCP Family Medicine Adult Medicine; Visit Provider Family Medicine Adult Medicine | DX: I10 Essential (primary) hypertension (principal); R53.83 Other fatigue; I69.391 Dysphagia following cerebral infarction | CPT/HCPCS: 80053; 84443; 85025 ==

== ENCOUNTER → 2023-04-22 12:42 | Outpatient (BNVA) | payer MEDICARE, SELFPAY | PROVIDERS: PCP Family Medicine Adult Medicine; Visit Provider Internal Medicine Cardiovascular Disease | DX: Z45.09 Encounter for adjustment and management of other cardiac device (principal) | CPT/HCPCS: G2066 ==

== ENCOUNTER 2023-06-17 12:51 | Outpatient (CLI) | payer MEDICARE, SELFPAY ==
--- NOTE | 2023-06-17 12:56 | MM_ITS ---
WS: [id number] Bilateral screening 3D tomosynthesis digital mammogram, 06/17/2023 Clinical Data: Z12.39 - Encounter for other screening for malignant neop... Comparison: 08/02/2020, 06/13/2016, 02/27/2015, 02/20/2014, 12/25/2008. Findings: The breast parenchymal pattern shows fibroglandular tissue. No spiculated masses or clustered calcifi cations are seen. There are no secondary signs of carcinoma. There is a loop recorder overlying the l eft breast. Only the left medial lateral view provided the tomographic image. Impression: 1. Negative bilateral mammogram unchanged. 2. Recommend annual screening mammograms. MM/[place] [id number] BIRADS: 1-Negative FOLLOW UP: 1 Year Follow-up The CAD checker/stocker was used.
== END 2023-06-17 12:52 | disposition home or self-care (01) ==
LOC: RAD 12:52
PROVIDERS: PCP Family Medicine Adult Medicine; Visit Provider Family Medicine Adult Medicine
DX: Z12.31 Encounter for screening mammogram for malignant neoplasm of breast (principal)
CPT/HCPCS: 77063; 77067

== ENCOUNTER → 2023-06-19 16:27 | Outpatient (BNVA) | payer MEDICARE, SELFPAY | PROVIDERS: PCP Family Medicine Adult Medicine; Visit Provider Family Medicine Adult Medicine | DX: L98.499 Non-pressure chronic ulcer of skin of other sites with unspecified severity (principal); D49.2 Neoplasm of unspecified behavior of bone, soft tissue, and skin | CPT/HCPCS: 88304 ==

== ENCOUNTER → 2023-08-05 23:37 | Outpatient (BNVA) | payer MEDICARE, MEDICAID, SELFPAY | PROVIDERS: PCP Family Medicine Adult Medicine; Visit Provider Internal Medicine | DX: Z45.09 Encounter for adjustment and management of other cardiac device (principal) | CPT/HCPCS: 93296; 93298 ==

== ENCOUNTER → 2023-09-23 14:30 | Outpatient (BNVA) | payer MEDICARE, SELFPAY | PROVIDERS: PCP Family Medicine Adult Medicine; Visit Provider Internal Medicine | DX: Z45.09 Encounter for adjustment and management of other cardiac device (principal) | CPT/HCPCS: 93298 ==

== ENCOUNTER → 2023-11-03 10:58 | Outpatient (BNVA) | payer MEDICARE, MEDICAID, SELFPAY | PROVIDERS: PCP Family Medicine Adult Medicine | DX: Z45.09 Encounter for adjustment and management of other cardiac device (principal) | CPT/HCPCS: 93298 ==

== ENCOUNTER → 2023-12-30 11:52 | Outpatient (BNVA) | payer MEDICARE, MEDICAID, SELFPAY | PROVIDERS: PCP Family Medicine Adult Medicine; Visit Provider Internal Medicine | DX: Z45.09 Encounter for adjustment and management of other cardiac device (principal) | CPT/HCPCS: 93298 ==

== ENCOUNTER → 2024-02-03 11:08 | Outpatient (BNVA) | payer MEDICARE, MEDICAID, SELFPAY | PROVIDERS: PCP Family Medicine Adult Medicine; Visit Provider Internal Medicine | DX: Z45.09 Encounter for adjustment and management of other cardiac device (principal) | CPT/HCPCS: 93298 ==

== ENCOUNTER → 2024-04-27 09:26 | Outpatient (BNVA) | payer MEDICARE, MEDICAID, SELFPAY | PROVIDERS: PCP Family Medicine Adult Medicine; Visit Provider Internal Medicine | DX: Z45.09 Encounter for adjustment and management of other cardiac device (principal) | CPT/HCPCS: 93298 ==

== ENCOUNTER → 2024-06-01 08:53 | Outpatient (BNVA) | payer MEDICARE, MEDICAID, SELFPAY | PROVIDERS: PCP Family Medicine Adult Medicine; Visit Provider Internal Medicine Cardiovascular Disease | DX: Z45.09 Encounter for adjustment and management of other cardiac device (principal) | CPT/HCPCS: 93298 ==

== ENCOUNTER → 2024-07-27 10:21 | Outpatient (BNVA) | payer MEDICARE, MEDICAID, SELFPAY | PROVIDERS: PCP Family Medicine Adult Medicine; Visit Provider Internal Medicine | DX: Z45.09 Encounter for adjustment and management of other cardiac device (principal) | CPT/HCPCS: 93298 ==

== ENCOUNTER → 2024-09-28 11:48 | Outpatient (BNVA) | payer MEDICARE, MEDICAID, SELFPAY | PROVIDERS: PCP Family Medicine Adult Medicine; Visit Provider Internal Medicine Cardiovascular Disease | DX: Z45.09 Encounter for adjustment and management of other cardiac device (principal) | CPT/HCPCS: 93298 ==

== ENCOUNTER → 2024-09-30 11:35 | Outpatient (BNVA) | payer MEDICARE, MEDICAID, SELFPAY | PROVIDERS: PCP Family Medicine Adult Medicine; Visit Provider Nurse Practitioner Family | DX: Z45.09 Encounter for adjustment and management of other cardiac device (principal) | CPT/HCPCS: 93291 ==

== ENCOUNTER → 2024-12-01 11:50 | Outpatient (BNVA) | payer MEDICARE, MEDICAID, SELFPAY | PROVIDERS: PCP Family Medicine Adult Medicine; Visit Provider Internal Medicine | DX: Z45.09 Encounter for adjustment and management of other cardiac device (principal) | CPT/HCPCS: 93298 ==

== ENCOUNTER → 2024-12-07 15:08 | Outpatient (BNVA) | payer MEDICARE, MEDICAID, SELFPAY | PROVIDERS: PCP Family Medicine; Visit Provider Family Medicine | DX: I12.9 Hypertensive chronic kidney disease with stage 1 through stage 4 chronic kidney disease, or unspecified chronic kidney disease (principal); E55.9 Vitamin D deficiency, unspecified; E78.2 Mixed hyperlipidemia; R79.89 Other specified abnormal findings of blood chemistry; N18.2 Chronic kidney disease, stage 2 (mild); Z79.891 Long term (current) use of opiate analgesic | CPT/HCPCS: 80053; 80061; 82043; 82306; 82607; 83735; 84439; 84443; 85025 ==

== ENCOUNTER → 2025-01-25 17:04 | Outpatient (BNVA) | payer MEDICARE, MEDICAID, SELFPAY | PROVIDERS: PCP Family Medicine; Visit Provider Internal Medicine | DX: Z45.09 Encounter for adjustment and management of other cardiac device (principal) | CPT/HCPCS: 93298 ==

== ENCOUNTER 2025-03-07 12:42 | Outpatient (CLI) | payer MEDICARE, MEDICAID, SELFPAY ==
--- NOTE | 2025-03-07 12:46 | XRR_ITS ---
PROCEDURE INFORMATION: Exam: XR Thoracic Spine Exam date and time: 03/07/2025 12:56 PM Age: 69 years old Clinical indication: Pain in thoracic spine; PT states she has back pain down into hip & up into neck x one month. ; Additional info: M54.9 - dorsalgia, unspecified TECHNIQUE: Imaging protocol: Radiologic exam of the thoracic spine. Views: 3 views. COMPARISON: CR XR cervical spine 4-5V [id number] 11/06/2022 10:14 AM FINDINGS: Tubes, catheters and devices: Wireless loop recorder overlies the medial lower left chest. Neurostimulator leads extend to the mid to upper cervical region. Bones/joints: Minimal thoracic scoliosis. Alignment is otherwise unremarkable. Thoracic vertebral body heights appear maintained. Mild spondylotic change. No fracture or compression deformity. Soft tissues: Unremarkable. XR/XR thoracic spine 2V [id number] IMPRESSION: Mild spondylotic change. No acute findings.
--- NOTE | 2025-03-07 12:46 | XRR_ITS ---
PROCEDURE INFORMATION: Exam: XR Cervical Spine Exam date and time: 03/07/2025 12:56 PM Age: 69 years old Clinical indication: Neck pain; PT states she has back pain down into hip & up into neck x one month. 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 . . TECHNIQUE: Imaging protocol: Radiologic exam of the cervical spine. Views: 2 or 3 views. COMPARISON: CR XR cervical spine 4-5V [id number] 11/06/2022 10:14 AM FINDINGS: Bones/joints: Spinal stimulator leads noted C2-C4 level, as seen with prior exam. One of the leads within the posterior soft tissues demonstrates a small questionable area with lack of continuity; however, this is unchanged from 2022 exam. Cervical vertebral body heights appear maintained as do disc spaces and alignment. Mild spondylotic change, particularly facets. No fracture or compression deformity. Soft tissues: Unremarkable XR/XR cervical spine 3V* [id number] IMPRESSION: 1. Spinal stimulator leads as noted above and with prior exam 2022. 2. Mild spondylotic change.
--- NOTE | 2025-03-07 12:46 | XRR_ITS ---
PROCEDURE INFORMATION: Exam: XR Lumbosacral Spine Exam date and time: 03/07/2025 12:56 PM Age: 69 years old Clinical indication: Low back pain; PT states she has back pain down into hip & up into neck x one month. 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 Views: 2 or 3 views. COMPARISON: CR XR thoracic spine 2V [id number] 03/07/2025 12:56 PM FINDINGS: Tubes, catheters and devices: Neurostimulator apparatus posterior left lower lumbar soft tissues with leads extending cephalad. Bones/joints: AP view demonstrates slight dextroscoliosis thoracolumbar junction and slight levoscoliosis mid to lower lumbar spine. Lumbar vertebral body heights appear maintained. Spondylotic change noted involving lumbar vertebra and facets in the lower lumbar spine. Diffuse disc space narrowing or degenerative disc disease appears moderate. Disc space narrowing with endplate sclerosis and marginal osteophyte formation noted L1-L2 level. Slight retrolisthesis of L1 on L2 likely degenerative. Alignment is otherwise unremarkable on the lateral view. Mild degenerative change SI joints. Soft tissues: Unremarkable. XR/XR lumbar spine 2-3V* [id number] IMPRESSION: Diffuse lumbar spondylotic change with degenerative disc disease as noted above. No fracture or compression deformity. Mild S shaped lumbar scoliosis.
== END 2025-03-07 12:43 | disposition home or self-care (01) ==
LOC: RAD 12:44
PROVIDERS: PCP Family Medicine; Visit Provider Family Medicine
DX: M54.9 Dorsalgia, unspecified (principal); G89.29 Other chronic pain; M19.042 Primary osteoarthritis, left hand; M54.50 Low back pain, unspecified; Z96.82 Presence of neurostimulator; Z96.89 Presence of other specified functional implants; M47.814 Spondylosis without myelopathy or radiculopathy, thoracic region; M47.896 Other spondylosis, lumbar region; M41.86 Other forms of scoliosis, lumbar region; M25.78 Osteophyte, vertebrae
CPT/HCPCS: 72040; 72070; 72100

== ENCOUNTER → 2025-03-22 09:43 | Outpatient (BNVA) | payer MEDICARE, MEDICAID, SELFPAY | PROVIDERS: PCP Family Medicine; Visit Provider Internal Medicine Cardiovascular Disease | DX: Z45.09 Encounter for adjustment and management of other cardiac device (principal) | CPT/HCPCS: 93298 ==

== ENCOUNTER → 2025-04-26 09:28 | Outpatient (BNVA) | payer MEDICARE, MEDICAID, SELFPAY | PROVIDERS: PCP Family Medicine; Visit Provider Internal Medicine Cardiovascular Disease | DX: Z45.09 Encounter for adjustment and management of other cardiac device (principal) | CPT/HCPCS: 93298 ==